=== PATIENT | female | born 1995 | race Hispanic/Latino ===

== ENCOUNTER 2017-09-24 17:00 | Inpatient (IN) | payer OTHER ==
--- OUTSIDE RECORDS SUMMARY | 2017-09-24 17:02 | XMS REPORT | Clinical Summary ---
:1995 Author Organization [facility] Address [address] [place] [address] Phone Care Team Providers Name Role Phone Unavailable Primary Care Provider Unavailable Allergies Active Allergy Reactions Severity Noted Date Comments Cefaclor Hives 04/07/2015 Current Medications Prescription Sig. Disp. Refills Start Date End Date Status insulin glargine Inject 16 Units Active (LANTUS) 100 subcutaneously every unit/mL injection morning Use as directed . insulin aspart Inject 16 Units Active (NOVOLOG) 100 subcutaneously 3 unit/mL injection (three) times daily before meals. acetaminophen-codei Take 1 tablet by 15 tablet 0 04/07/2015 Active ne (TYLENOL #3) mouth 3 (three) times 300-30 mg per daily as needed for tablet Pain. Active Problems Not on file Encounters Date Type Specialty Care Team Description 07/26/2017 Hospital Encounter Radiology Leigh Ulices Tachycardia Axel 07/24/2017 Outside Orders Central Scheduling Ulices Abraham Tachycardia ( Primary Axel Dx) after 09/23/2016 Social History Tobacco Use Types Packs/Day Years Used Date Never Smoker Alcohol Use Drinks/Week oz/Week Comments No Sex Assigned at Date Recorded Not on file Last Filed Vital Signs Not on file Plan of Treatment Not on file Results MR cardiac without IV contrast (07/26/2017 2:38 PM) Specimen Performing Laboratory [facility] Narrative FINAL REPORT Cardiac MRI, 26 July 2017 INDICATION: This is a 22-year old young lady with tachycardia presents for compressive cardiac assessment. TECHNIQUE: Jeannine ACHIEVA MRI scanner. Morphologic and dynamic cine imaging was performed in multiple projections before and after contrast administration.Thereafter, gadolinium was administered, which was then followed by viability/scar imaging.A phased array surface coil was used for enhanced resolution and [id number] ratio. Please refer to the contrast sheet scanned in the EPIC system for the amount and route of contrast given. Patient weighs approximately 65 pounds, with height of 49 inches. Scanning blood pressure was 113/69. FINDINGS: The chest wall and mediastinum are remarkable.Limited imaging of the lungs reveals no gross abnormality; MR is not optimised in the assessment of pulmonary parenchymal lung disease. The cardiac chambers demonstrate normal atrioventricular concordance and systemic and pulmonary venous return.The thoracic aorta is normal in course, caliber, and contour. The aortic arch is left-sided. The arch vessel branching pattern is normal. The pericardium and pulmonary arteries have normal appearance; no pericardial effusion is seen, and the central pulmonary artery is normal in calibre. In the MRI data set, the heart is located somewhat in the centre of the thorax (likely just a normal variant) though the apex is still pointing to the left (i.e. normal). The abdominal situs appears to be normal when this level is on the right side of the abdomen. The left ventricle is normal in size, shape, and function. There are no segmental wall motion abnormalities.Quantitative values are as follows: EDV=49 cc; ESV=17 cc; stroke volume=32 cc; and ejection fraction=65%.Calculated absolute cardiac output=3.8 liters/min.Absolute left ventricular mass=37 grams. There is no evidence of hypertrophic cardiomyopathy or left ventricular non-compaction.Normal systolic thickening is seen in the left ventricular outflow tract. Viability / scar imaging reveals full thickness, viable myocardium in the entire left ventricle.There is no prior myocardial damage. Ventricular thrombus is not identified. A focus examination was performed in the right ventricle, including the infundibulum. There is no MRI findings to suggest ARVD. Specifically, there is no fatty or fibrous replacement of the right ventricle.No regional wall motion abnormalities are identified. Overall right ventricular function is normal, normal systolic thickening is identified in the entire right ventricular myocardium, including the right ventricular outflow tractThere is no abnormal enhancement of the right ventricular myocardium after gadolinium administration. Quantitative right ventricular functional values are as follows: EDV =50 cc; ESV=13 cc; stroke volume=36 cc; and ejection fraction= 73%. Cine imaging and flow quantification reveal normal aortic, mitral, and tricuspid valve function. In the cine imaging, no evidence of mitral valve prolapse is appreciated in the traditional parasternal long axis orientation. No aortic stenosis is seen. CONCLUSIONS: 1. The left ventricle is normal in size and function.Ejection fraction is quantified to be 65%.Quantitative left ventricular functional values are as described above. Viability/scar imaging reveals full thickness, viable appearing myocardium in the entire left ventricle. 2.There is no MRI findings to suggest ARVD or other right ventricular cardiomyopathy. There is no focal or generalised aneurysmal dilation of the right ventricle. Normal contraction is seen in the right ventricular myocardium. No regional wall motion abnormalities are identified. Right ventricular function is normal. There is no abnormal enhancement of the right ventricular myocardium after gadolinium administration. Quantitative right ventricular functional values are as described above. 3.Note, scanning heart rate was at least 110 bpm during the entire examination. Signed: Jb Taylor MD Report Verified Date/Time:07/30/2017 07:53:01 Reading Location: [place] [id number] Cardiology MRI Procedure Note Interface, External Ris In - 07/30/2017 7:55 AM HOUSE [employer]PERINTENDENT FINAL REPORT Cardiac MRI, 26 July 2017 INDICATION: This is a 22-year old young lady with tachycardia presents for compressive cardiac assessment. TECHNIQUE: Jeannine ACHIEVA MRI scanner. Morphologic and dynamic cine imaging was performed in multiple projections before and after contrast administration. Thereafter, gadolinium was administered, which was then followed by viability/scar imaging. A phased array surface coil was used for enhanced resolution and [id number] ratio. Please refer to the contrast sheet scanned in the EPIC system for the amount and route of contrast given. Patient weighs approximately 65 pounds, with height of 49 inches. Scanning blood pressure was 113/69. FINDINGS: The chest wall and mediastinum are remarkable. Limited imaging of the lungs reveals no gross abnormality; MR is not optimised in the assessment of pulmonary parenchymal lung disease. The cardiac chambers demonstrate normal atrioventricular concordance and systemic and pulmonary venous return. The thoracic aorta is normal in course, caliber, and contour. The aortic arch is left-sided. The arch vessel branching pattern is normal. The pericardium and pulmonary arteries have normal appearance; no pericardial effusion is seen, and the central pulmonary artery is normal in calibre. In the MRI data set, the heart is located somewhat in the centre of the thorax (likely just a normal variant) though the apex is still pointing to the left (i.e. normal). The abdominal situs appears to be normal when this level is on the right side of the abdomen. The left ventricle is normal in size, shape, and function. There are no segmental wall motion abnormalities. Quantitative values are as follows: EDV=49 cc; ESV=17 cc; stroke volume=32 cc; and ejection fraction=65%. Calculated absolute cardiac output=3.8 liters/min. Absolute left ventricular mass=37 grams. There is no evidence of hypertrophic cardiomyopathy or left ventricular non-compaction. Normal systolic thickening is seen in the left ventricular outflow tract. Viability / scar imaging reveals full thickness, viable myocardium in the entire left ventricle. There is no prior myocardial damage. Ventricular thrombus is not identified. A focus examination was performed in the right ventricle, including the infundibulum. There is no MRI findings to suggest ARVD. Specifically, there is no fatty or fibrous replacement of the right ventricle. No regional wall motion abnormalities are identified. Overall right ventricular function is normal, normal systolic thickening is identified in the entire right ventricular myocardium, including the right ventricular outflow tract There is no abnormal enhancement of the right ventricular myocardium after gadolinium administration. Quantitative right ventricular functional values are as follows: EDV =50 cc; ESV=13 cc; stroke volume=36 cc; and ejection fraction= 73%. Cine imaging and flow quantification reveal normal aortic, mitral, and tricuspid valve function. In the cine imaging, no evidence of mitral valve prolapse is appreciated in the traditional parasternal long axis orientation. No aortic stenosis is seen. CONCLUSIONS: 1. The left ventricle is normal in size and function. Ejection fraction is quantified to be 65%. Quantitative left ventricular functional values are as described above. Viability/scar imaging reveals full thickness, viable appearing myocardium in the entire left ventricle. 2. There is no MRI findings to suggest ARVD or other right ventricular cardiomyopathy. There is no focal or generalised aneurysmal dilation of the right ventricle. Normal contraction is seen in the right ventricular myocardium. No regional wall motion abnormalities are identified. Right ventricular function is normal. There is no abnormal enhancement of the right ventricular myocardium after gadolinium administration. Quantitative right ventricular functional values are as described above. 3. Note, scanning heart rate was at least 110 bpm during the entire examination. Signed: Jb Taylor MD Report Verified Date/Time: 07/30/2017 07:53:01 Reading Location: [facility] P0 Cardiology MRI after 09/23/2016
--- OUTSIDE RECORDS SUMMARY | 2017-09-24 17:02 | XMS REPORT | Clinical Summary ---
:1995 Author Organization [facility] Address [address] [place] [address] Care Team Providers Name Role Phone Ashley Valdes Primary Care Provider Allergies Active Allergy Reactions Severity Noted Date Comments Cefaclor Hives, Rash High 03/19/2016 Current Medications Prescription Sig. Disp. Refills Start Date End Date Status blood sugar TID 100 strip 1 03/22/2016 Active diagnostic strips (FREESTYLE TEST) strip test strips famotidine (PEPCID) Take 20 mg by Active 20 MG tablet mouth 2 (two) times a day. GLUCAGON,HUMAN Inject 1 mg as Active RECOMBINANT directed as (GLUCAGON EMERGENCY needed KIT, HUMAN, INJ) (Hypoglycemia) . simvastatin (ZOCOR) Take 20 mg by 07/12/2017 Discontinued 20 MG tablet mouth nightly. sucralfate Take 1 g by 07/04/2017 07/12/2017 Discontinued (CARAFATE) 100 mouth 4 (four) mg/mL suspension times a day. mirtazapine Take 30 mg by 07/12/2017 Discontinued (REMERON) 15 MG mouth daily. tablet sertraline (ZOLOFT) Take 50 mg by 07/12/2017 Discontinued 50 MG tablet mouth daily. INSULIN ASPART Inject 20-40 07/12/2017 Discontinued (NOVOLOG FLEXPEN Units under SUBQ) the skin 3 (three) times a day before meals. INSULIN DEGLUDEC Inject 100 07/12/2017 Discontinued (TRESIBA FLEXTOUCH Units under U-100 SUBQ) the skin daily. insulin GLARGINE Inject 30 900 Units 0 07/12/2017 08/11/2017 (LANTUS SOLOSTAR) Units under 100 unit/mL the skin daily injection (pen) for 30 days. insulin lispro Inject 8 Units 4 pen 2 07/12/2017 08/11/2017 (HumaLOG KwikPen) under the skin 100 unit/mL 3 (three) injection pen times a day before meals for 30 days. Active Problems Problem Noted Date Diabetic ketoacidosis without coma associated with type 1 diabetes 07/04/2017 mellitus Type 1 diabetes mellitus with hyperglycemia 03/19/2016 Hyperglycemia without ketosis 03/19/2016 Type 1 diabetes mellitus with ketoacidosis without coma 03/19/2016 Encounters Date Type Specialty Care Team Description 07/04/2017 - Hospital Encounter General Internal Brunson, Hyperglycemia due to type 1 diabetes mellitus (Primary Dx); 07/12/2017 Medicine MD Jesse Pain of upper abdomen; El-Qaddoumi, Lactic acidosis; Jose Manuel Alexandra MD Hyponatremia; Khemka, Hyperglycemia without ketosis MD Jenny Diamond, MD Patrick after 09/23/2016 Immunizations Name Dates Previously Given Next Due FLUCELVAX QUAD PF (0.5mL syringe) 07/12/2017 Pneumococcal Conjugate 13-Valent 07/12/2017 Family History Medical History Relation Name Comments No Known Problems Father Seizures Mother Relation Name Status Comments Father Mother Social History Tobacco Use Types Packs/Day Years Used Date Never Smoker Smokeless Tobacco: Never Used Alcohol Use Drinks/Week oz/Week Comments No Sex Assigned at Date Recorded Not on file Last Filed Vital Signs Vital Sign Reading Time Taken Blood Pressure 104/69 07/12/2017 8:12 AM [facility] Pulse 107 07/12/2017 8:12 AM [facility] Temperature 35.9 C (96.6 F) 07/12/2017 8:12 AM [facility] [employer] Respiratory Rate 17 07/12/2017 8:12 AM [facility] [employer] Oxygen Saturation 99% 07/12/2017 8:12 AM [facility] RO[employer] Inhaled Oxygen Concentration - - Weight 29.8 kg (65 lb 12.8 oz) 07/09/2017 5:00 AM [facility] RO[employer] Height 121.9 cm (4') 07/04/2017 6:14 PM [facility] RO[employer] Body Mass Index 20.08 07/09/2017 5:00 AM [facility] [employer]VIS[facility] Plan of Treatment Health Maintenance Due Date Last Done Comments FOOT EXAM 2004 OPHTHALMOLOGY EXAM 2004 URINE MICROALBUMIN 2004 CHLAMYDIA SCREENING 2010 PAP SMEAR 2015 INFLUENZA VACCINE 01/01/2018 07/12/2017 Procedures Procedure Name Priority Date/Time Associated Comments Diagnosis ECHOCARDIOGRAM 2D Routine 07/12/2017 11:11 Results for this LIMITED AM [employer] procedure are in the results section. ECHOCARDIOGRAM 2D Routine 07/07/2017 5:30 Results for this COMPLETE W MMODE PM [employer]OR procedure are in SPECTRAL COLOR DOPPLER the results (84007) section. after 09/23/2016 Results POC glucose (07/12/2017 11:34 AM)Only the most recent of53 resultswithin the time period is included. Component Value Ref Range POC glucose 129 (H) 65 - 99 mg/dL Comment: RN Notified Meter ID: [id number] Rn Wound Care: Isis Dash Specimen Performing Laboratory [facility] DEPARTMENT OF PATHOLOGY AND GENOMIC MEDICINE [address] [place] [address] Echocardiogram 2d limited (07/12/2017 11:11 AM) Component Value Ref Range BSA Perla 0.00 m2 BSA 1.04 m2 BSA Haycock 0.00 m2 Pt Size 0.00 Pt Wt 0.00 MAX Pred HR 196.82 85 of MPHR 167.30 Calc MPHR 196.82 bpm Pred Exer Dur R1 11.89 Pred METS R1 11.69 Specimen Performing Laboratory [facility] [address] [place] [address] Narrative This is a limited 2D echocardiogram. Left ventricle is small in size with hyperdynamic systolic function. Left ventricular ejection fraction is >70%. Both atria are normal in size. Right ventricle is normal in size with hyperdynamic systolic function. Mitral and tricuspid valves appear normal in structure;aortic and pulmonic valves not well visualized. Unable to estimate right ventricular systolic pressure due to inadequate tricuspid regurgitation jet. No mass or thrombus identified in the cardiac chambers. Small pericardial effusion without any echocardiographic evidence of tamponade. Interatrial septum appears intact. Estimated GFR (07/12/2017 6:01 AM)Only the most recent of14 resultswithin the time period is included. Component Value Ref Range GFR Non Af Amer >90 mL/min/1.73 m2 GFR Af Amer >90 mL/min/1.73 m2 Comment: Chronic kidney disease: <60 mL/min/1.73m2 Kidney failure: <15 mL/min/1.73m2 The estimated GFR is calculated from the IDMS-traceable Modification of Diet in Renal Disease Equation. The accuracy of the calculation is poor when the creatinine is normal. Calculated values >90 mL/min/1.73m2 are not reported. This equation has not been validated in children (<18 years), women, the elderly (>70 years), or ethnic groups other than Caucasians and Americans. Specimen Performing Laboratory Plasma specimen [facility] DEPARTMENT OF PATHOLOGY AND GENOMIC MEDICINE [address] [place] [address] CBC with platelet and differential (07/12/2017 6:01 AM)Only the most recent of6 resultswithin the time period is included. Component Value Ref Range WBC 5.6 4.5 - 11.0 k/uL RBC 3.70 (L) 4.20 - 5.50 m/uL HGB 11.0 (L) 12.0 - 16.0 g/dL HCT 33.6 (L) 37.0 - 47.0 % MCV 90.8 82.0 - 100.0 fL MCH 29.7 27.0 - 34.0 pg MCHC 32.7 31.0 - 37.0 g/dL RDW - SD 42.3 37.0 - 55.0 fL MPV 12.6 (H) 6.9 - 11.0 fL Platelet count 150 150 - 400 K/uL Nucleated RBC 0.00 /100 WBC Neutrophils 51.4 39.0 - 69.0 % Lymphocytes 33.2 25.0 - 45.0 % Monocytes 10.9 (H) 0.0 - 10.0 % Eosinophils 2.0 0.0 - 5.0 % Basophils 0.7 0.0 - 1.0 % Immature granulocytes 1.8 (H) 0.0 - 1.0 % Specimen Performing Laboratory Blood [facility] DEPARTMENT OF PATHOLOGY AND [address] [address] Hepatic function panel (07/12/2017 6:01 AM)Only the most recent of2 resultswithin the time period is included. Component Value Ref Range Albumin 3.7 3.5 - 5.0 g/dL Total bilirubin 0.5 0.2 - 1.2 mg/dL Bilirubin direct <0.2 0.0 - 0.3 mg/dL Alkaline phosphatase 227 (H) 35 - 104 U/L Protein 6.1 (L) 6.3 - 8.3 g/dL ALT 439 (H) 5 - 50 U/L AST 543 (H) 10 - 35 U/L Specimen Performing Laboratory Plasma specimen [facility] [place] [address] Basic metabolic panel (07/12/2017 6:01 AM)Only the most recent of8 resultswithin the time period is included. Component Value Ref Range Sodium 139 135 - 148 mEq/L Potassium 4.0 3.5 - 5.0 mEq/L Chloride 96 (L) 98 - 112 mEq/L CO2 29 24 - 31 mEq/L Anion gap 14 7 - 15 mEq/L Comment: Starting from September , anion gap calculation no longer incorporates potassium. Please note the change. BUN 23 (H) 6 - 20 mg/dL Creatinine 0.4 (L) 0.5 - 0.9 mg/dL Glucose 304 (H) 65 - 99 mg/dL Calcium 9.0 8.3 - 10.2 mg/dL Specimen Performing Laboratory Plasma specimen [facility] [place] [address] ECG 12 lead (07/11/2017 8:31 AM)Only the most recent of3 resultswithin the time period is included. Component Value Ref Range Ventricular rate 117 Atrial rate 117 QRSD interval 54 QT interval 324 QTC interval 451 P axis 1 29 QRS axis 1 24 T wave axis 27 EKG impression Sinus tachycardia-Low voltage QRS-Borderline ECG-In automated comparison with ECG of 06-JUL-2017 21:08,-RSR' pattern in V1 is no longer present-QRS voltage has decreased-Nonspecific T wave abnormality n ow evident in Inferior leads- Specimen Performing Laboratory [facility] [address] [place] [address] Comprehensive metabolic panel (07/10/2017 6:10 AM)Only the most recent of6 resultswithin the time period is included. Component Value Ref Range Sodium 144 135 - 148 mEq/L Potassium 3.3 (L) 3.5 - 5.0 mEq/L Chloride 102 98 - 112 mEq/L CO2 27 24 - 31 mEq/L Anion gap 15 7 - 15 mEq/L Comment: Starting from September , anion gap calculation no longer incorporates potassium. Please note the change. BUN 14 6 - 20 mg/dL Creatinine 0.4 (L) 0.5 - 0.9 mg/dL Glucose 202 (H) 65 - 99 mg/dL Calcium 7.7 (L) 8.3 - 10.2 mg/dL Protein 5.8 (L) 6.3 - 8.3 g/dL Albumin 3.5 3.5 - 5.0 g/dL A/G ratio 1.5 0.7 - 3.8 Alkaline phosphatase 219 (H) 35 - 104 U/L AST 916 (H) 10 - 35 U/L ALT 351 (H) 5 - 50 U/L Total bilirubin 0.3 0.2 - 1.2 mg/dL Specimen Performing Laboratory Plasma specimen [facility] DEPARTMENT OF PATHOLOGY AND GENOMIC MEDICINE [address] [place] [address] Anti mitochondria screen (07/08/2017 2:00 PM) Component Value Ref Range Anti mitochondria screen Not Detected Not-Detected Specimen Performing Laboratory Blood [facility] DEPARTMENT OF PATHOLOGY AND [facility] [address] [place] [address] Ceruloplasmin level (07/08/2017 2:00 PM) Component Value Ref Range Ceruloplasmin 15 (L) 16 - 45 mg/dL Specimen Performing Laboratory Plasma specimen [facility] DEPARTMENT OF PATHOLOGY AND [facility] [address] [place] [address] Hepatitis acute panel (07/08/2017 2:00 PM) Component Value Ref Range Hepatitis A IgM Non-reactive Non-reactive Hepatitis B core IgM Non-reactive Non-reactive Hepatitis B surface Ag Non-reactive Non-reactive Hepatitis C Ab Non-reactive Non-reactive Specimen Performing Laboratory Serum [facility] OF PATHOLOGY AND [facility] [address] [place] [address] CRP high sensitivity (07/08/2017 2:00 PM) Component Value Ref Range CRP, high sensitivity <0.02 mg/L Comment: Please note this test is different from the C-Reactive Protein (CRP) assay. CRP is a nonspecific marker of inflammation and its levels rise in the presence of conditions such as infection and inflammatory disorders. Persistent low levels of CRP can be measured with a high-sensitivity assay (hsCRP) andare associated with increased risks for atherosclerotic diseases. High-Sensitivity CRP (hsCRP) results are used to assign risk for stroke, acute myocardial infarction and peripheral vascular disease as follows: Low risk: < 1.00 mg/L Average risk: 1.00 - 3.00 mg/L High risk: > 3.00 - 10.00 mg/L Indeterminate: > 10.00 mg/L * *May be indicative of another source of inflammation or infection Specimen Performing Laboratory Plasma specimen [facility] DEPARTMENT OF PATHOLOGY AND GENOMIC MEDICINE [address] [place] [address] LANCE (07/08/2017 2:00 PM) Component Value Ref Range LANCE screen <1:80 <1:80 Specimen Performing Laboratory Blood [facility] DEPARTMENT OF PATHOLOGY AND [facility] [address] [place] [address] Thyroid stimulating hormone (07/08/2017 2:00 PM)Only the most recent of2 resultswithin the time period is included. Component Value Ref Range TSH 0.74 0.27 - 4.20 uIU/mL Specimen Performing Laboratory Plasma specimen [facility] DEPARTMENT OF PATHOLOGY AND GENOMIC MEDICINE [address] [place] [address] Echocardiogram complete w contrast and 3D if needed (07/07/2017 5:30 PM) Component Value Ref Range AoV Mean PG 2.00 mmHg AoV Peak PG 3.00 mmHg AoV Vmax 0.85 m/s AoV VTI 0.12 m LVOT Vmax 0.77 m/s LVOT VTI 0.11 m PV Pk Grad 5.00 mmHg PV VMAX 1.07 m/s TR Vpeak 1.79 mm/s TR pk grad 13.00 mmHg AV LVOT peak gradient 2.00 mmHg AoV Vmn 0.64 LVOT Vmn 0.51 LVOT mean grad 1.00 mmHg MAX Pred HR 196.84 85 of MPHR 167.31 Calc MPHR 196.84 bpm Pred Exer Dur R1 11.89 Pred METS R1 11.69 Velocity Ratio (V1/V2) 0.91 m/s Specimen Performing Laboratory [facility] [address] [place] [address] Addenda Addendum by Chasity Correia MD on 07/11/2017 7:00 AM Left ventricle is small in size with hyperdynamic systolic function. Left ventricular ejection fraction is >70%. Unable to assess left ventricular diastolic function. Both atria are normal in size. Right ventricle is normal in size with hyperdynamic systolic function. Mitral, tricuspid and aortic valve appear normal in structure; pulmonic valve is not well visualized. Estimated right ventricular systolic pressure is normal at 27mm Hg., assuming right atrial pressure of 10 mm Hg. No mass or thrombus identified in the cardiac chambers. A small generalised pericardial effusion is present without echocardiographic evidence of tamponade. Inferior vena cava is collapsed, suggestive of low right atrial pressure. Narrative Left ventricle is small in size with hyperdynamic systolic function. Left ventricular ejection fraction is >70%. Unable to assess left ventricular diastolic function. Both atria are normal in size. Right ventricle is normal in size with hyperdynamic systolic function. Mitral, tricuspid and aortic valve appear normal in structure; pulmonic valve is not well visualized. Estimated right ventricular systolic pressure is normal at 27mm Hg., assuming right atrial pressure of 10 mm Hg. No mass or thrombus identified in the cardiac chambers. A small generalised pericardial effusion is present without echocardiographic evidence of tamponade. Urinalysis screen and microscopy, with reflex to culture (07/07/2017 3:30 PM) Only the most recent of2 resultswithin the time period is included. Component Value Ref Range Specimen site Clean catch Color, UA Yellow Appearance, UA Clear Specific gravity, UA 1.012 1.001 - 1.030 pH, UA 8.0 5.0 - 9.0 Protein, UA Negative Negative Glucose, UA Negative Negative Ketones, UA Negative Negative Bilirubin, UA Negative Negative Blood, UA Negative Negative Nitrite, UA Negative Negative Urobilinogen, UA <2.0 <2.0 E.U./dL Leukocyte esterase, UA Trace (A) Negative Epithelial cells, UA 2 /HPF Round epithelial cells, UA <1 0 - 5 /HPF WBC, UA 4 0 - 4 /HPF RBC, UA <1 0 - 2 /HPF Bacteria, UA None seen None seen Yeast, UA None seen Yeast with pseudohyphae, UA None seen Specimen Performing Laboratory Urine [facility] DEPARTMENT OF PATHOLOGY AND GENOMIC MEDICINE [address] [facility] [place] [address] Urine drugs of abuse screen (07/07/2017 3:30 PM) Component Value Ref Range Amphetamine screen, urine Negative Methamphetamine screen, urine Negative Barbiturate screen, urine Negative Benzodiazepine screen, urine Negative Cocaine screen, urine Negative Methadone screen, urine Negative Opiates screen, urine Negative Phencyclidine screen, urine Negative Cannabinoid screen, urine Negative Tricyclic screen, urine Negative Comment: Drug screen minimum concentration of detectability [id number] ng/mL Puswfxzfbxtaewxi7568 ng/mL Barbiturates 300 ng/mL Bnehwvqdiemsbxs037 ng/mL Xtslngo780 ng/mL Ymqogfesq918 ng/mL Fdeenax307 ng/mL Phencyclidine 25 ng/mL Tbdkwzutzpgf53 ng/mL Yvwtuioqtg3212 ng/mL Negative test results indicates presumptive evidence of lack of clinically significant drug concentration in this urine specimen. Positive test results are presumptive evidence of clinically significant drug concentration in this urine specimen. Testing performed for medical purposes only. Specimen Performing Laboratory Urine [facility] DEPARTMENT OF PATHOLOGY AND GENOMIC MEDICINE [address] [place] [address] Gram stain (07/07/2017 3:30 PM)Only the most recent of2 resultswithin the time period is included. Component Value Ref Range Gram stain result Rare WBC's No organisms seen Comment: Specimen Information Specimen Source: Urine Specimen Site: Clean catch Specimen Performing Laboratory Urine [facility] DEPARTMENT OF PATHOLOGY AND GENOMIC MEDICINE [address] [place] [address] Urine culture (07/07/2017 3:30 PM)Only the most recent of2 resultswithin the time period is included. Component Value Ref Range Urine culture isolate Mixed Gram positive danish 10-3 cfu/ml (A) Comment: Specimen Information Specimen Source: Urine Specimen Site: Clean catch Specimen Performing Laboratory Urine [facility] DEPARTMENT OF PATHOLOGY AND GENOMIC MEDICINE [address] [place] [address] Magnesium level (07/06/2017 2:13 AM)Only the most recent of4 resultswithin the time period is included. Component Value Ref Range Magnesium 1.9 1.6 - 2.6 mg/dL Specimen Performing Laboratory Plasma specimen [facility] DEPARTMENT OF PATHOLOGY AND [facility] [address] [place] [address] Ionized calcium (07/06/2017 2:13 AM)Only the most recent of2 resultswithin the time period is included. Component Value Ref Range pH 7.50 Ionized calcium 1.02 (L) 1.11 - 1.32 mmol/L Specimen Performing Laboratory Plasma specimen [facility] DEPARTMENT OF PATHOLOGY AND GENOMIC [address] [address] Lactic acid level (07/05/2017 5:40 AM) Component Value Ref Range Lactic acid 1.1 0.5 - 2.2 mmol/L Specimen Performing Laboratory Plasma specimen [facility] DEPARTMENT OF PATHOLOGY AND GENOMIC MEDICINE [address] [place] [address] Lactic acid level, SEPSIS - Now and repeat 2x every 3 hours (07/05/2017 1:44 AM )Only the most recent of3 resultswithin the time period is included. Component Value Ref Range Lactic acid 4.6 (HH) 0.5 - 2.2 mmol/L Comment: Lacid results called to and read back by Cuate Marquez/ARNOLDO (name/location) at 07/05/201702:31 (date/time) by [facility]. Specimen Performing Laboratory Plasma specimen [facility] OF PATHOLOGY AND GENOMIC MEDICINE [address] [place] [address] Osmolality, serum (07/05/2017 1:44 AM) Component Value Ref Range Osmolality 301 (H) 275 - 295 mOsm/kg Specimen Performing Laboratory Blood [facility] DEPARTMENT OF PATHOLOGY AND GENOMIC MEDICINE [address] [place] [address] ECG ED Preliminary Interpretation - NOT AN ORDER (07/05/2017 12:03 AM) Michaelle Leiva PA-C 07/04/2017 11:13 PM ECG ED Preliminary Interpretation - Not an Order Performed by: LORA LEIVA Authorized by: JESSE BRUNSON ECG reviewed by ED Physician in the absence of a fiberglass tube molder: yes Rate: ECG rate:132 ECG rate assessment: tachycardic Rhythm: Rhythm: sinus tachycardia QRS: QRS intervals:Normal ST segments: ST segments:Normal T waves: T waves: non-specific Hemoglobin A1c (07/04/2017 10:28 PM) Component Value Ref Range Hemoglobin A1C 15.2 (H) 4.0 - 6.0 % Comment: Less than 6% - Goal of therapy for Type II Diabetes Less than 7%-Goal of therapy for Type I Diabetes Less than 8%-Acceptable control for Type I or Type II Diabetes Greater than 8%-Unacceptable control; action indicated. (ADA94) Specimen Performing Laboratory Blood [facility] DEPARTMENT OF PATHOLOGY AND GENOMIC MEDICINE [address] [place] [address] CT Abdomen Pelvis W Contrast (07/04/2017 10:20 PM) Specimen Performing Laboratory [facility] [address] [place] [address] Narrative Examination: CT ABDOMEN PELVIS W CONTRAST Clinical history: abdominal pain Comparison: None Technique: Multiple computerized axial tomographic images were obtained of the abdomen and pelvis following administration of IV contrast.Sagittal and coronal computerized reformatted images were also obtained.Enteric contrast was administered. CT scans are performed using radiation dose reduction techniques.Technical factors are evaluated and adjusted to ensure appropriate moderation of exposure.Automated dose management technology is applied to adjust radiation exposure while achieving a diagnostic quality image. IMPRESSION: The visualized lung bases are clear. Abdomen: 1. The liver, spleen, adrenal glands, pancreas, and kidneys are unremarkable. 2. The pancreatic and biliary ducts are not dilated. The abdominal aorta is normal caliber. 3.The bowel is not dilated. The opacified bowel is unremarkable.A short segment of a normal appendix is identified. The remainder the appendix is not visualized. 4.There is no significant abdominal wall defect, hernia, or abscess. Pelvis: 1.Moderate distention of the bladder measures up to 11.7 x 9.8 cm axial by 15.7 cm in craniocaudal dimension and extends almost up to the umbilicus. If the patient cannot void, Thurston decompression may be helpful. 2.There is no acute osseous pathology. CONCLUSION: 1. DISTENTION OF THE BLADDER. 2. PLEASE SEE ABOVE. [facility]-[id number] Procedure Note Interface, Radiology Results Incoming - 07/04/2017 10:36 PM HOG ROOM [employer]PERVISOR Examination: CT ABDOMEN PELVIS W CONTRAST Clinical history: abdominal pain Comparison: None Technique: Multiple computerized axial tomographic images were obtained of the abdomen and pelvis following administration of IV contrast.Sagittal and coronal computerized reformatted images were also obtained. Enteric contrast was administered. CT scans are performed using radiation dose reduction techniques. Technical factors are evaluated and adjusted to ensure appropriate moderation of exposure. Automated dose management technology is applied to adjust radiation exposure while achieving a diagnostic quality image. IMPRESSION: The visualized lung bases are clear. Abdomen: 1. The liver, spleen, adrenal glands, pancreas, and kidneys are unremarkable. 2. The pancreatic and biliary ducts are not dilated. The abdominal aorta is normal caliber. 3. The bowel is not dilated. The opacified bowel is unremarkable. A short segment of a normal appendix is identified. The remainder the appendix is not visualized. 4. There is no significant abdominal wall defect, hernia, or abscess. Pelvis: 1. Moderate distention of the bladder measures up to 11.7 x 9.8 cm axial by 15.7 cm in craniocaudal dimension and extends almost up to the umbilicus. If the patient cannot void, Thurston decompression may be helpful. 2. There is no acute osseous pathology. CONCLUSION: 1. DISTENTION OF THE BLADDER. 2. PLEASE SEE ABOVE. [facility]-[id number] Arterial blood gas (07/04/2017 9:47 PM) Component Value Ref Range pH, arterial 7.47 (H) 7.35 - 7.45 pCO2, arterial 41 35 - 45 mmHg pO2, arterial 89 80 - 90 mmHg Bicarbonate, arterial 29.0 (H) 21.0 - 28.0 mmol/L Base excess, arterial 5 (H) -2 - 2 mEq/L O2 saturation, arterial 97 95 - 100 % Specimen Performing Laboratory Blood [facility] DEPARTMENT OF PATHOLOGY AND GENOMIC MEDICINE [id number] [place] [address] XR Chest 1 Vw Portable (07/04/2017 8:22 PM) Specimen Performing Laboratory [facility] [place] [address] Narrative Examination: XR CHEST 1 VW PORTABLE Clinical history: r o pulm edemapneumonia Comparison: February 22, 2016 Impression: 1. The heart and pulmonary vasculature are within normal limits. 2. No infiltrate or effusion is demonstrated. 3. There is no acute osseous pathology. CONCLUSION: NO RADIOGRAPHIC EVIDENCE OF ACUTE CARDIOPULMONARY ABNORMALITY. [id number] Procedure Note Interface, Radiology Results Incoming - 07/04/2017 8:27 PM HOG ROOM [employer]PERVISOR Examination: XR CHEST 1 VW PORTABLE Clinical history: r o pulm edema pneumonia Comparison: February 22, 2016 Impression: 1. The heart and pulmonary vasculature are within normal limits. 2. No infiltrate or effusion is demonstrated. 3. There is no acute osseous pathology. CONCLUSION: NO RADIOGRAPHIC EVIDENCE OF ACUTE CARDIOPULMONARY ABNORMALITY. [facility]-[id number] US Gallbladder (07/04/2017 8:13 PM) Specimen Performing Laboratory [facility] [address] [place] [address] Narrative EXAMINATION:US GALLBLADDER CLINICAL HISTORY:epigastric pain COMPARISON:None. FINDINGS: Gallbladder: The gallbladder is normal in size and there are no calculi. The gallbladder wall is not thickened and measures 2.0 mm in thickness. There is no pericholecystic fluid. CBD:0.19 cm , within normal limits. Portal vein: The portal vein demonstrates normal hepatopedal flow. The portal vein measures 1.1 cm in diameter. Portal blood flow velocity is 10 cm/s. IMPRESSION: Normal gallbladder ultrasound examination. [facility]-[id number] Procedure Note [facility], Radiology Results Incoming - 07/04/2017 8:20 PM [facility] SUPERVISOR EXAMINATION: US GALLBLADDER CLINICAL HISTORY: epigastric pain COMPARISON: None. FINDINGS: Gallbladder: The gallbladder is normal in size and there are no calculi. The gallbladder wall is not thickened and measures 2.0 mm in thickness. There is no pericholecystic fluid. CBD: 0.19 cm , within normal limits. Portal vein: The portal vein demonstrates normal hepatopedal flow. The portal vein measures 1.1 cm in diameter. Portal blood flow velocity is 10 cm/s. IMPRESSION: Normal gallbladder ultrasound examination. [facility]-[id number] Beta hydroxybutyrate (07/04/2017 7:25 PM) Component Value Ref Range Beta hydroxybutyrate 4.63 (H) 0.02 - 0.27 mmol/L Specimen Performing Laboratory Blood [facility] DEPARTMENT OF PATHOLOGY AND GENOMIC MEDICINE [address] [place] [id number] hCG qualitative, serum screen (07/04/2017 7:25 PM) Component Value Ref Range hCG qualitative, serum NegativeComment: Sensitivity of HCG test: 25 mIU/mL Specimen Performing Laboratory Blood [facility] DEPARTMENT OF PATHOLOGY AND GENOMIC MEDICINE [address] [place] [phone] Lipase level (07/04/2017 7:25 PM) Component Value Ref Range Lipase 18 13 - 60 U/L Specimen Performing Laboratory Plasma specimen [facility] DEPARTMENT OF PATHOLOGY AND GENOMIC MEDICINE [address] [place] [id number] after 09/23/2016 Insurance Payer Benefit Plan / Group Subscriber ID Type Phone Address [employer] [place] xxxxxxxxx HMO [phone] [place], [place] [phone]
--- OUTSIDE RECORDS SUMMARY | 2017-09-24 17:04 | XMS REPORT ---
:1995 [facility] [address] [place] [address] Care Team Providers Name Role Phone DR KELLIE RODRIGUEZ Unavailable Unavailable DR KAMLESH HARO Unavailable Unavailable Problems This patient has no known problems. Allergies, Adverse Reactions, Alerts This patient has no known allergies or adverse reactions. Medications This patient has no known medications. Encounters Start End Encounter Admission Attending Care Care Encounter Date/Time Date/Time Type Type Clinicians Facility Department ID 2017-09-17 2017-09-19 Inpatient C KELLIE RODRIGUEZ [facility] [id number] 00:11:00 17:20:00 Results Test Description Test Time Test Comments Text Results Atomic Results Result Comments POTASSIUM BLOOD 2017-09-19 16:17:00 Test Item Value Reference Range Comments POTASSIUM (test code=01B) 3.8 mmol/L 3.6-5.1 GLUCOMETER GLUCOSE- LAB USE [id number] 15:31:00 Test Item Value Reference Range Comments GLUCOMETER (test code=GMG) 112 mg/dL 70-100 Meter ID: [id number]: 59[address] RICHARDS OSMOLARITY [id number] 14:33:00 Test Item Value Reference Range Comments OSMOLALITY (SERUM) (test 296 mOsm/kg 278-305 TEST PERFORMED AT:QUEST afis=[id number]) DI[facility]NOSTICS[id number] [place], [place] [address]KKMKESMORRIS THORNE MD GLUCOMETER GLUCOSE- LAB USE [id number] 11:13:00 Test Item Value Reference Range Comments GLUCOMETER (test code=GMG) 206 mg/dL 70-100 Meter ID: [id number]: 5930 JUAN RICHARDS CBC WITH MANUAL [id number] 09:49:00 Test Item Value Reference Range Comments WBC (test code=WBC) 5.0 10\S\3/uL 4.5-11.0 RBC (test code=RBC) 4.60 10\S\6/uL 4.30-5.70 HGB (test code=HBG) 13.0 g/dL 12.0-15.5 HCT (test code=HCT) 37.8 % 35.0-44.0 MCV (test code=MCV) 82.2 fL 81.0-99.0 MCH (test code=MCH) 28.3 pg 27.0-31.0 MCHC (test code=MCHC) 34.4 g/dL 32.0-36.0 RDW (test code=RDW) 13.2 % 11.5-14.5 PLT (test code=PLT) 156 10\S\3/uL 130-400 MPV (test code=MPV) 10.9 fL 9.4-12.4 NEUTROP # (test code=NE#) 3.3 10\S\3/uL 1.6-8.0 LYMPH # (test code=LY#) 1.3 10\S\3/uL 1.1-3.5 MONOCYTE # (test code=MO#) 0.5 10\S\3/uL 0.0-1.1 EOSINOPH # (test code=EO#) 0.0 10\S\3/uL 0.0-0.7 BASOPHIL # (test code=BA#) 0.0 10\S\3/uL 0.0-0.3 IG # (test code=IG#) 0.03 10\S\3/uL 0.00-0.06 NRBC # (test code=NRBC#) 0.00 10\S\3/uL 0.00-0.01 NEUTROPH % (test code=NE%) 64.5 % 35.0-73.0 LYMPH % (test code=LY%) 24.8 % 20.0-55.0 MONO % (test code=MO%) 9.5 % 2.5-10.0 EOSINOPH % (test code=EO%) 0.2 % 0.0-5.0 BASOPHIL % (test code=BA%) 0.4 % 0.0-2.0 IG % (test code=IG%) 0.6 % 0.0-0.8 NRBC% (test code=NRBC%) 0.0 % 0.0-0.2 MAN DIFF (test code=HMDIFF) MANUAL DIFFERENTIAL SEG (test code=SEG) 65 % 42-75 BAND (test code=BAND) 0 % 0-8 LYMPH (test code=LYMPH) 26 % 20-51 MONO (test code=MONO) 9 % 3-11 EOS (test code=EOS) 0 % 0-10 BASO (test code=BASO) 0 % 0-2 RBC MORPH (test code=RBCMORN) NORMAL NORMAL PLT EST (test code=PLTEST) ADEQUATE ADEQUATE PLT MORPH (test code=PLTMOR) NORMAL (1.5-3 um) NORMAL BASIC METABOLIC [id number] 09:48:00 Test Item Value Reference Range Comments GLUCOSE (test code=06D) 424 mg/dL 75-100 SODIUM (test code=01A) 135 mmol/L 136-145 POTASSIUM (test code=01B) 3.2 mmol/L 3.6-5.1 CHLORIDE (test code=04A) 95 mmol/L 98-107 CO2 (test code=02A) 31 mmol/L 22-32 ANION GAP (test code=ANG) 12.2 mmol/L BUN (test code=05D) 6 mg/dL 7-18 CREATININE (test code=03E) 0.8 mg/dL 0.4-1.1 BUN/CREA (test code=BCR) 8 12-20 CALCIUM (test code=09D) 7.2 mg/dL 8.3-9.5 GLUCOMETER GLUCOSE- LAB USE [id number] 06:09:00 Test Item Value Reference Range Comments GLUCOMETER (test code=GMG) 269 mg/dL 70-100 Meter ID: [id number]: 4[address] NANCY HI GLUCOMETER GLUCOSE- LAB USE [id number] 20:42:00 Test Item Value Reference Range Comments GLUCOMETER (test code=GMG) 224 mg/dL 70-100 Meter ID: [id number]: [address] NANC[address] GLUCOMETER GLUCOSE- LAB USE [id number] 16:16:00 Test Item Value Reference Range Comments GLUCOMETER (test code=GMG) 152 mg/dL 70-100 CLEANED METERMeter ID: [id number]: 5307 LANCE SADLER GLUCOMETER GLUCOSE- LAB USE [id number] 11:47:00 Test Item Value Reference Range Comments GLUCOMETER (test code=GMG) 115 mg/dL 70-100 CLEANED METERMeter ID: [id number]: 5[address] LANCE SADLER XR CHEST 1 [id number] 07:52:23EXAM: Portable chest x-rayLocation: [id number]: J18.9: PNEUMONIA, UNSPECIFIED ORGANISMCOMPARISON:Chest x-ray on 09/17/17DISCUSSION:The right upper examination intravenous catheter tip overlies the right atrium.No consolidation or pleural effusion is seen. The cardiomediastinal silhouetteis withinnormal limits. No acute bony abnormalities are identified.IMPRESSION: No evidence of acute abnormality or significant interval change.U/S KIDNEY (RENAL)2017-09-18 07:03:55RENAL ULTRASOUNDLocation Code: [id number] HISTORY: N17.9: ACUTE KIDNEY FAILURE, UNSPECIFIEDCOMPARISON: None.COMMENT: Wahl scale and selective color Doppler sonographic imaging of thekidneys was performed.The kidneys are of normal echogenicity with no focal mass, calcification, orhydronephrosis.The right kidney measures 10.1 x 5.2 x 4.5 cm. The left kidney measures 9.8 x4.6 x 5.1 cm. Cortical thickness is normal on each side.The bladder is unremarkable with no significant post void residual. Bilateralureteral jets are identified.IMPRESSION: Normal renal ultrasound.BRAIN NATRIURETIC [id number] 06:23:00 Test Item Value Reference Range Comments proBNP (test code=PBNP) 350 pg/mL 0-125 BASIC METABOLIC [id number] 06:20:00 Test Item Value Reference Range Comments GLUCOSE (test code=06D) 172 mg/dL 75-100 SODIUM (test code=01A) 142 mmol/L 136-145 POTASSIUM (test code=01B) 2.3 mmol/L 3.6-5.1 CHLORIDE (test code=04A) 101 mmol/L 98-107 CO2 (test code=02A) 31 mmol/L 22-32 ANION GAP (test code=ANG) 12.3 mmol/L BUN (test code=05D) 4 mg/dL 7-18 CREATININE (test code=03E) 0.8 mg/dL 0.4-1.1 BUN/CREA (test code=BCR) 5 12-20 CALCIUM (test code=09D) 7.1 mg/dL 8.3-9.5 CBC (INCLUDES AUTOMATED DIFFERENTIAL)2017-09-18 06:18:00 Test Item Value Reference Range Comments WBC (test code=WBC) 9.2 10\S\3/uL 4.5-11.0 RBC (test code=RBC) 4.12 10\S\6/uL 4.30-5.70 HGB (test code=HBG) 11.5 g/dL 12.0-15.5 HCT (test code=HCT) 33.1 % 35.0-44.0 MCV (test code=MCV) 80.3 fL 81.0-99.0 MCH (test code=MCH) 27.9 pg 27.0-31.0 MCHC (test code=MCHC) 34.7 g/dL 32.0-36.0 RDW (test code=RDW) 13.5 % 11.5-14.5 PLT (test code=PLT) 179 10\S\3/uL 130-400 MPV (test code=MPV) 11.1 fL 9.4-12.4 NEUTROP # (test code=NE#) 5.8 10\S\3/uL 1.6-8.0 LYMPH # (test code=LY#) 2.7 10\S\3/uL 1.1-3.5 MONOCYTE # (test code=MO#) 0.7 10\S\3/uL 0.0-1.1 EOSINOPH # (test code=EO#) 0.0 10\S\3/uL 0.0-0.7 BASOPHIL # (test code=BA#) 0.0 10\S\3/uL 0.0-0.3 IG # (test code=IG#) 0.06 10\S\3/uL 0.00-0.06 NRBC # (test code=NRBC#) 0.00 10\S\3/uL 0.00-0.01 NEUTROPH % (test code=NE%) 62.5 % 35.0-73.0 LYMPH % (test code=LY%) 29.3 % 20.0-55.0 MONO % (test code=MO%) 7.1 % 2.5-10.0 EOSINOPH % (test code=EO%) 0.3 % 0.0-5.0 BASOPHIL % (test code=BA%) 0.2 % 0.0-2.0 IG % (test code=IG%) 0.6 % 0.0-0.8 NRBC% (test code=NRBC%) 0.0 % 0.0-0.2 MANDIFF (test code=MDIFF) NO NO RBC MORPH (test code=RBCMOR) NORMAL T3 [id number] 06:07:00 Test Item Value Reference Range Comments T3 FREE (test 1.7 pg/mL 2.3-4.2 TEST PERFORMED AT:QUEST ujiq=[id number]) DIAGNOSTICS [id number] [place] [address]YHTMNKRYSTINA CHASE M.D. GLUCOMETER GLUCOSE- LAB USE [id number] 23:36:00 Test Item Value Reference Range Comments GLUCOMETER (test code=GMG) 134 mg/dL 70-100 DAILY MAINTENANCECLEANED METERMeter ID: [id number]: 5366 DEREK MCKNIHGT GLUCOMETER GLUCOSE- LAB USE [id number] 22:03:00 Test Item Value Reference Range Comments GLUCOMETER (test code=GMG) 149 mg/dL 70-100 Meter ID: [id number]: 4316 MARGARET LY URINALYSIS WITH [id number] 17:52:00 Test Item Value Reference Range Comments COLOR (test code=COLU) YELLOW YELLOW CLARITY (test code=CLA) CLEAR CLEAR GLUCOSE UR (test code=UA GLUCOSE) 2+ NEGATIVE BILI UR (test code=BILE) NEGATIVE NEGATIVE KETONES UR (test code=GRIS) NEGATIVE NEGATIVE SP GRAVITY (test code=SPGR) 1.013 1.005-1.030 PH UR (test code=PH) 5.5 4.5-8.0 PROTEIN UR (test code=PU) NEGATIVE NEGATIVE UROBIL UR (test code=UROQ) 0.2 EU/dL 0.2-1.0 NITRITE UR (test code=NITRITE) NEGATIVE NEGATIVE BLOOD UR (test code=UA BLOOD) NEGATIVE NEGATIVE LEUK ES UR (test code=LEUK) TRACE NEGATIVE WBC UR (test code=UWBC) 4 /HPF 0-5 RBC UR (test code=URBC) 0 /HPF 0-2 EPITH UR (test code=UEPC) FEW /LPF FEW BACTERIA UR (test code=UBACT) NONE /HPF NONE CAST UR (test code=CAST) /LPF NONE CRYSTAL UR (test code=CRYU) / LPF NONE MUCUS UR (test code=MUC) / HPF NONE AMORPH UR (test code=CAROL) / HPF NONE TRICH UR (test code=UTRICH) /HPF NONE YEAST UR (test code=UY) /HPF NONE SPERM UR (test code=USPERM) /HPF NONE GLUCOMETER GLUCOSE- LAB USE [id number] 16:52:00 Test Item Value Reference Range Comments GLUCOMETER (test code=GMG) 266 mg/dL 70-100 CLEANED METERMeter ID: [id number]: 9195 JAMES MCDOWELLFrancesca PHOSPHORUS (P04)2017-09-17 14:57:00 Test Item Value Reference Range Comments PHOSPHORUS (test code=43D) 7.9 mg/dL 2.7-4.6 BASIC METABOLIC [id number] 14:15:00 Test Item Value Reference Range Comments GLUCOSE (test code=06D) 177 mg/dL 75-100 SODIUM (test code=01A) 137 mmol/L 136-145 POTASSIUM (test code=01B) 4.2 mmol/L 3.6-5.1 CHLORIDE (test code=04A) 98 mmol/L 98-107 CO2 (test code=02A) 30 mmol/L 22-32 ANION GAP (test code=ANG) 13.2 mmol/L BUN (test code=05D) 4 mg/dL 7-18 CREATININE (test code=03E) 0.9 mg/dL 0.4-1.1 BUN/CREA (test code=BCR) 5 12-20 CALCIUM (test code=09D) 6.6 mg/dL 8.3-9.5 GLUCOMETER GLUCOSE- LAB USE [id number] 11:15:00 Test Item Value Reference Range Comments GLUCOMETER (test code=GMG) 182 mg/dL 70-100 CLEANED METERMeter ID: [id number]: [address] [facility] LIPID [id number] 10:22:00 Test Item Value Reference Range Comments CHOLESTROL (test code=44A) 129 mg/dL 140-200 TRIGLYCERI (test code=42B) 89 mg/dL <=149 HDL (test code=83D) 53.0 mg/dL 40.0-60.0 LDL (test code=34B) 68 mg/dL <=99 CHL/HDL (test code=CHR) 2.4 0.0-3.4 BASIC METABOLIC [id number] 10:11:00 Test Item Value Reference Range Comments GLUCOSE (test code=06D) 264 mg/dL 75-100 SODIUM (test code=01A) 135 mmol/L 136-145 POTASSIUM (test code=01B) 3.0 mmol/L 3.6-5.1 CHLORIDE (test code=04A) 96 mmol/L 98-107 CO2 (test code=02A) 28 mmol/L 22-32 ANION GAP (test code=ANG) 14.0 mmol/L BUN (test code=05D) 5 mg/dL 7-18 CREATININE (test code=03E) 1.0 mg/dL 0.4-1.1 BUN/CREA (test code=BCR) 5 12-20 CALCIUM (test code=09D) 7.2 mg/dL 8.3-9.5 GLUCOMETER GLUCOSE- LAB USE [id number] 10:10:00 Test Item Value Reference Range Comments GLUCOMETER (test code=GMG) 191 mg/dL 70-100 CLEANED METERMeter ID: [id number]: [address] [facility] LIVER [id number] 10:05:00 Test Item Value Reference Range Comments BILI TOTAL (test code=11A) 0.4 mg/dL 0.2-1.0 BILI DIRCT (test code=12A) 0.1 mg/dL 0.0-0.2 BILI INDIR (test code=BILII) 0.3 mg/dL <=0.8 PROTEIN (test code=07D) 5.7 g/dL 6.4-8.2 ALBUMIN (test code=08D) 3.1 g/dL 3.5-4.8 GLOBULIN (test code=GLB) 2.6 g/dL 1.5-3.8 ALB/GLOB (test code=AGRR) 1.2 1.0-2.6 ALK PHOS (test code=35A) 119 IU/L 42-121 AST (test code=30A) 18 IU/L <=42 ALT (test code=31A) 41 IU/L <=78 [id number] 09:58:00 Test Item Value Reference Range Comments CPK (test code=32A) 50 IU/L 26-192 AMYLASE AND [id number] 09:52:00 Test Item Value Reference Range Comments AMYLASE (test code=10A) 49 U/L 28-100 LIPASE (test code=60A) 37 IU/L 73-393 Venous Blood [id number] 09:24:00 Test Item Value Reference Range Comments VpH (test code=VPHRT) 7.433 7.300-7.400 VpCO2 (test code=DPUL9XT) 43.1 mmHg 40.0-50.0 VpO2 (test code=VPO2RT) 40.6 mmHg 30.0-40.0 HCO3? (test code=HCO3) 28.3 mmol/L 22.0-26.0 KAMAR (test code=KAMAR) 4.1 mmol/L -3.0-3.0 tHb (test code=THBRT) 12.5 g/dL 12.0-15.5 vsO2 (test code=VSO2RT) 76.7 % 55.0-75.0 FO2Hb (test code=CS3VODNO) 74.8 % FCOHb (test code=FCOHBRTV) 1.4 % FMetHb (test code=FMETHBRTV) 1.0 % ABGTEMP (test code=ABGTEMP) * Temp Corrected Values* ABGTEMP (test code=ABGTEMP.) 37.0 ?C pH (T) (test code=PHTEMPV) 7.433 7.300-7.400 pCO2 (T) (test code=KEM8RHLRG) 43.1 mmHg 40.0-50.0 pO2 (T) (test code=FP3RPPGO) 40.6 mmHg 30.0-40.0 Device (test code=DEVICE) ROOM AIR FI02 (test code=FI02) 21.0 % Liter_flow (test code=LF) VENPAR (test code=VENPAR) * Ventilator Parameters * SIMV (test code=SIMV) A/C (test code=A/C) CPAP (test code=CPAP) PEEP (test code=PEEP) PS (test code=PS) PIP (test code=PIP) I_Time (test code=ITIME) Vt (test code=VT) BIPAP INSP (test code=BIPAPINP) BIPAP EXP (test code=BIPAPEXP) SAMPLE SITE (test code=SSITE) Vein COMMENT (test code=CO) GLUCOMETER GLUCOSE- LAB USE [id number] 09:19:00 Test Item Value Reference Range Comments GLUCOMETER (test code=GMG) 262 mg/dL 70-100 CLEANED METERMeter ID: [id number]: [address] M[address]OWELL U/S [id number] 09:13:35ULTRASOUND-GUIDED CENTRAL LINE PLACEMENTCLINICAL HISTORY: DKA. [id number]: Central venous cannula insertion. PROCEDURE: Written informed consent was obtained. The right neck was evaluatedwith real- time ultrasound, and the internal jugular vein was deemed to bepatent and compressible. The skin overlying the area was sterilely prepped anddraped and anesthetized with 1% lidocaine. All elements of maximal sterilebarrier technique were employed. Under real-time ultrasound guidance, access into the right internal jugularvein was gained using micropuncture access. An image was saved to the permanentrecord. A J-wire was advanced centrally. The microsheath was removed, and thesoft tissues were dilated.Finally, a triple-lumen catheter was placed over thewire. The wire was removed. All ports aspirated and flushed well. The catheterwas then secured to skin with nonabsorbable suture. The patient tolerated theprocedure well.FINDINGS:Position: A final placement radiograph demonstrates the tip of the catheter inthe high right atrium.Complications: None IMPRESSION: Successful placement of a triple- lumen central line via the right internalvein. This line is ready for use.Location: R16XR CENTRAL LINE [id number] 09:13:35ULTRASOUND-GUIDED CENTRAL LINE PLACEMENTCLINICAL HISTORY: DKA. [id number]: Central venous cannula insertion. PROCEDURE: Written informed consent was obtained. The right neck was evaluatedwith real-time ultrasound, and the internal jugular vein was deemed to bepatent and compressible. The skin overlying the area was sterilely prepped anddraped and anesthetized with 1% lidocaine. All elements of maximal sterilebarrier technique were employed. Under real-time ultrasound guidance, access into the right internal jugularvein was gained using micropuncture access. [facility]. A J-wire was advanced centrally. The microsheath was removed, and thesoft tissues were dilated.Finally , a triple-lumen catheter was placed over thewire. The wire was removed. All ports aspirated and flushed well. The catheterwas then secured to skin with nonabsorbable suture. The patient tolerated theprocedure well.FINDINGS:Position : A final placement radiograph demonstrates the tip of the catheter inthe high right atrium.Complications: None IMPRESSION: Successful placement of a triple-lumen central line via the right internalvein. This line is ready for use.Location: [id number] 08:31:00 Test Item Value Reference Range Comments MAGNESIUM (test code=48A) 3.1 mg/dL 1.8-2.4 PHOSPHORUS (P04)2017-09-17 08:27:00 Test Item Value Reference Range Comments PHOSPHORUS (test code=43D) 0.2 mg/dL 2.7-4.6 BASIC METABOLIC [id number] 07:58:00 Test Item Value Reference Range Comments GLUCOSE (test code=06D) 345 mg/dL 75-100 SODIUM (test code=01A) 134 mmol/L 136-145 POTASSIUM (test code=01B) 2.2 mmol/L 3.6-5.1 CHLORIDE (test code=04A) 96 mmol/L 98-107 CO2 (test code=02A) 22 mmol/L 22-32 ANION GAP (test code=ANG) 18.2 mmol/L BUN (test code=05D) 7 mg/dL 7-18 CREATININE (test code=03E) 1.0 mg/dL 0.4-1.1 BUN/CREA (test code=BCR) 7 12-20 CALCIUM (test code=09D) 7.6 mg/dL 8.3-9.5 GLUCOMETER GLUCOSE- LAB USE [id number] 07:43:00 Test Item Value Reference Range Comments GLUCOMETER (test code=GMG) 286 mg/dL 70-100 CLEANED METERMeter ID: [id number]: 9[address] J[address] ESTRELLA CBC (INCLUDES AUTOMATED DIFFERENTIAL)2017-09-17 07:04:00 Test Item Value Reference Range Comments WBC (test code=WBC) 13.5 10\S\3/uL 4.5-11.0 RBC (test code=RBC) 4.33 10\S\6/uL 4.30-5.70 HGB (test code=HBG) 12.5 g/dL 12.0-15.5 HCT (test code=HCT) 34.4 % 35.0-44.0 MCV (test code=MCV) 79.4 fL 81.0-99.0 MCH (test code=MCH) 28.9 pg 27.0-31.0 MCHC (test code=MCHC) 36.3 g/dL 32.0-36.0 RDW (test code=RDW) 13.0 % 11.5-14.5 PLT (test code=PLT) 255 10\S\3/uL 130-400 MPV (test code=MPV) 11.2 fL 9.4-12.4 NEUTROP # (test code=NE#) 9.9 10\S\3/uL 1.6-8.0 LYMPH # (test code=LY#) 2.8 10\S\3/uL 1.1-3.5 MONOCYTE # (test code=MO#) 0.7 10\S\3/uL 0.0-1.1 EOSINOPH # (test code=EO#) 0.0 10\S\3/uL 0.0-0.7 BASOPHIL # (test code=BA#) 0.1 10\S\3/uL 0.0-0.3 IG # (test code=IG#) 0.14 10\S\3/uL 0.00-0.06 NRBC # (test code=NRBC#) 0.00 10\S\3/uL 0.00-0.01 NEUTROPH % (test code=NE%) 73.0 % 35.0-73.0 LYMPH % (test code=LY%) 20.6 % 20.0-55.0 MONO % (test code=MO%) 4.8 % 2.5-10.0 EOSINOPH % (test code=EO%) 0.2 % 0.0-5.0 BASOPHIL % (test code=BA%) 0.4 % 0.0-2.0 IG % (test code=IG%) 1.0 % 0.0-0.8 NRBC% (test code=NRBC%) 0.0 % 0.0-0.2 MANDIFF (test code=MDIFF) NO NO RBC MORPH (test code=RBCMOR) NORMAL GLUCOMETER GLUCOSE- LAB USE [id number] 06:27:00 Test Item Value Reference Range Comments GLUCOMETER (test code=GMG) 319 mg/dL 70-100 Meter ID: [id number]: 5015 SEMCO EngineeringUMA AWOLOLA GLUCOMETER GLUCOSE- LAB USE [id number] 05:18:00 Test Item Value Reference Range Comments GLUCOMETER (test code=GMG) 325 mg/dL 70-100 Meter ID: [id number]: 5015 KASUMA AWOLOLA GLUCOMETER GLUCOSE- LAB USE [id number] 04:18:00 Test Item Value Reference Range Comments GLUCOMETER (test code=GMG) 331 mg/dL 70-100 Meter ID: [id number]: 5015 KASUMA AWOLOLA Venous Blood [id number] 02:53:00 Test Item Value Reference Range Comments VpH (test code=VPHRT) 7.396 7.300-7.400 VpCO2 (test code=ZKJD8QS) 41.0 mmHg 40.0-50.0 VpO2 (test code=VPO2RT) 39.6 mmHg 30.0-40.0 HCO3? (test code=HCO3) 24.6 mmol/L 22.0-26.0 KAMAR (test code=KAMAR) 0.3 mmol/L -3.0-3.0 tHb (test code=THBRT) 12.3 g/dL 12.0-15.5 vsO2 (test code=VSO2RT) 73.0 % 55.0-75.0 FO2Hb (test code=PI6BBSHN) 71.4 % FCOHb (test code=FCOHBRTV) 1.1 % FMetHb (test code=FMETHBRTV) 1.0 % ABGTEMP (test code=ABGTEMP) * Temp Corrected Values* ABGTEMP (test code=ABGTEMP.) 37.0 ?C pH (T) (test code=PHTEMPV) 7.396 7.300-7.400 pCO2 (T) (test code=YZQ3JSFPI) 41.0 mmHg 40.0-50.0 pO2 (T) (test code=IK1NEOCC) 39.6 mmHg 30.0-40.0 Device (test code=DEVICE) CANNULA FI02 (test code=FI02) 28.0 % Liter_flow (test code=LF) VENPAR (test code=VENPAR) * Ventilator Parameters * SIMV (test code=SIMV) A/C (test code=A/C) CPAP (test code=CPAP) PEEP (test code=PEEP) PS (test code=PS) PIP (test code=PIP) I_Time (test code=ITIME) Vt (test code=VT) BIPAP INSP (test code=BIPAPINP) BIPAP EXP (test code=BIPAPEXP) SAMPLE SITE (test code=SSITE) [place] COMMENT (test code=CO) GLUCOMETER GLUCOSE- LAB USE [id number] 02:38:00 Test Item Value Reference Range Comments GLUCOMETER (test code=GMG) 217 mg/dL 70-100 Meter ID: [id number]: 5015 [facility] XR CHEST 1 VIEW [id number] 02:27:06CHEST RADIOGRAPHLOCATION: R16.INDICATION: [id number]: Central venous cannula insertion.COMPARISON: None.TECHNIQUE: Frontal radiograph of the chest.FINDINGS:The right jugular central venous catheter tip projects over the right atrium.No focal airspace consolidation or pneumothorax is visualized. Thecardiomediastinal silhouette is normal.IMPRESSION:The right jugular catheter terminates in the right atrium.GLUCOMETER GLUCOSE- LAB USE [id number] 01:12:00 Test Item Value Reference Range Comments GLUCOMETER (test code=GMG) 216 mg/dL 70-100 Meter ID: [id number]: [id number] SHRUTHI MAXWELL CBC WITH MANUAL [id number] 01:02:00 Test Item Value Reference Range Comments WBC (test code=WBC) 15.0 10\S\3/uL 4.5-11.0 RBC (test code=RBC) 4.70 10\S\6/uL 4.30-5.70 HGB (test code=HBG) 13.5 g/dL 12.0-15.5 HCT (test code=HCT) 37.8 % 35.0-44.0 MCV (test code=MCV) 80.4 fL 81.0-99.0 MCH (test code=MCH) 28.7 pg 27.0-31.0 MCHC (test code=MCHC) 35.7 g/dL 32.0-36.0 RDW (test code=RDW) 13.1 % 11.5-14.5 PLT (test code=PLT) 293 10\S\3/uL 130-400 MPV (test code=MPV) 11.1 fL 9.4-12.4 NEUTROP # (test code=NE#) 11.3 10\S\3/uL 1.6-8.0 LYMPH # (test code=LY#) 2.9 10\S\3/uL 1.1-3.5 MONOCYTE # (test code=MO#) 0.6 10\S\3/uL 0.0-1.1 EOSINOPH # (test code=EO#) 0.0 10\S\3/uL 0.0-0.7 BASOPHIL # (test code=BA#) 0.1 10\S\3/uL 0.0-0.3 IG # (test code=IG#) 0.13 10\S\3/uL 0.00-0.06 NRBC # (test code=NRBC#) 0.00 10\S\3/uL 0.00-0.01 NEUTROPH % (test code=NE%) 75.5 % 35.0-73.0 LYMPH % (test code=LY%) 19.1 % 20.0-55.0 MONO % (test code=MO%) 3.9 % 2.5-10.0 EOSINOPH % (test code=EO%) 0.1 % 0.0-5.0 BASOPHIL % (test code=BA%) 0.5 % 0.0-2.0 IG % (test code=IG%) 0.9 % 0.0-0.8 NRBC% (test code=NRBC%) 0.0 % 0.0-0.2 MAN DIFF (test code=HMDIFF) MANUAL DIFFERENTIAL SEG (test code=SEG) 79 % 42-75 BAND (test code=BAND) 1 % 0-8 LYMPH (test code=LYMPH) 15 % 20-51 MONO (test code=MONO) 5 % 3-11 EOS (test code=EOS) 0 % 0-10 BASO (test code=BASO) 0 % 0-2 RBC MORPH (test code=RBCMORN) NORMAL NORMAL PLT EST (test code=PLTEST) ADEQUATE ADEQUATE PLT MORPH (test code=PLTMOR) NORMAL (1.5-3 um) NORMAL BASIC METABOLIC [id number] 00:59:00 Test Item Value Reference Range Comments GLUCOSE (test code=06D) 289 mg/dL 75-100 SODIUM (test code=01A) 138 mmol/L 136-145 POTASSIUM (test code=01B) 2.2 mmol/L 3.6-5.1 CHLORIDE (test code=04A) 105 mmol/L 98-107 CO2 (test code=02A) 14 mmol/L 22-32 ANION GAP (test code=ANG) 21.2 mmol/L BUN (test code=05D) 9 mg/dL 7-18 CREATININE (test code=03E) 1.3 mg/dL 0.4-1.1 BUN/CREA (test code=BCR) 7 12-20 CALCIUM (test code=09D) 8.3 mg/dL 8.3-9.5 [id number] 00:58:00 Test Item Value Reference Range Comments MAGNESIUM (test code=48A) 0.8 mg/dL 1.8-2.4 PHOSPHORUS (P04)[id number] 00:57:00 Test Item Value Reference Range Comments PHOSPHORUS (test code=43D) 0.5 mg/dL 2.7-4.6 [id number] 00:51:00 Test Item Value Reference Range Comments Hb A1C % (test code=HBA) 12.1 % 4.2-6.3 GLUCOMETER GLUCOSE- LAB USE [id number] 00:21:00 Test Item Value Reference Range Comments GLUCOMETER (test code=GMG) 313 mg/dL 70-100 Meter ID: [id number]: [id number] DEVON CARTER GLUCOMETER GLUCOSE- LAB USE [id number] 23:10:00 Test Item Value Reference Range Comments GLUCOMETER (test code=GMG) 361 mg/dL 70-100 Meter ID: [id number]: [id number] SHRUTHI MAXWELL Arterial Blood [id number] 22:26:00 Test Item Value Reference Range Comments pH (test code=PHRT) 7.297 7.350-7.450 pCO2 (test code=PCO2RT) 22.2 mmHg 35.0-45.0 pO2 (test code=PO2RT) 60.5 mmHg 80.0-110.0 HCO3? (test code=HCO3) 10.5 mmol/L 22.0-26.0 KAMAR (test code=KAMAR) -14.2 mmol/L -3.0-3.0 tHb (test code=THBRT) 13.5 g/dL 12.0-15.5 sO2 (test code=SO2RT) 88.1 % 92.0-100.0 FO2Hb (test code=VA6SLNI) 85.9 % 94.0-100.0 FCOHb (test code=FCOHBRT) 1.2 % 0.0-3.0 FMetHb (test code=FMETHBRT) 1.2 % 0.2-0.6 ABGTEMP (test code=ABGTEMP) * Temp Corrected Values* ABGTEMP (test code=ABGTEMP.) 37.0 ?C pH (T) (test code=PHTEMP) 7.297 7.350-7.450 pCO2 (T) (test code=GZF0JQKO) 22.2 mmHg 35.0-45.0 pO2 (T) (test code=OF3DVAD) 60.5 mmHg 80.0-110.0 Device (test code=DEVICE) ROOM AIR FI02 (test code=FI02) 21.0 % Liter_flow (test code=LF) VENPAR (test code=VENPAR) * Ventilator Parameters * SIMV (test code=SIMV) A/C (test code=A/C) CPAP (test code=CPAP) PEEP (test code=PEEP) PS (test code=PS) PIP (test code=PIP) I_Time (test code=ITIME) Vt (test code=VT) BIPAP INSP (test code=BIPAPINP) BIPAP EXP (test code=BIPAPEXP) Miguel test (test code=ATEST) Positive SAMPLE SITE (test code=SSITE) Left Radial Artery COMMENT (test code=CO) GLUCOMETER GLUCOSE- LAB USE [id number] 21:58:00 Test Item Value Reference Range Comments GLUCOMETER (test code=GMG) 391 mg/dL 70-100 Meter ID: [id number]: 5015 DEVON CARTER MR, CARDIAC WITHOUT [id number] 07:53:00Reason for Exam:-> tachycardiaFINAL REPORT Cardiac MRI, 26 July 2017 INDICATION: This is a 22-year old young lady with tachycardia presents for compressive cardiac assessment. TECHNIQUE: Jeannine ACHIEVAMRI scanner. Morphologic and dynamic cine imaging was performed in multiple projections before and after contrast administration. Thereafter, gadolinium was administered, which was then followed by viability/scar imaging. A phased array surface coil was used for enhanced resolution and beqwwx-sw-jngwu ratio. Please refer to the contrast sheet scanned in the EPIC system for the amount and route of contrast given. Patient weighs approximately 65 pounds, with height of 49 inches. Scanning blood pressure was 113/69. FINDINGS: The chest wall and mediastinum are remarkable. Limited imaging of the lungs reveals no gross abnormality; MR is not optimised in the assessment of pulmonary parenchymal lungdisease. The cardiac chambers demonstrate normal atrioventricular concordance and systemic and pulmonary venous return. The thoracic aorta is normal in course, caliber, and contour. The aortic arch isleft -sided. The arch vessel branching pattern is normal. The pericardium and pulmonary arteries have normal appearance; no pericardial effusion is seen, and the central pulmonary artery is normal in calibre. In the MRI data set, the heart is located somewhat in the centre of the thorax (likely just anormal variant) though the apex is still pointing to the left (i.e. normal). The abdominal situs appears to be normal when this level is on the right side of the abdomen. The left ventricle is normal in size, shape, and function. There are no segmental wall motion abnormalities. Quantitative values are as follows : EDV=49 cc; ESV=17 cc; stroke volume=32 cc; and ejection fraction=65%. Calculated absolute cardiac output=3.8 liters/min. Absolute left ventricular mass=37 grams. There is no evidence ofhypertrophic cardiomyopathy or left ventricular non-compaction. Normal systolic thickening is seen in the left ventricular outflow tract. Viability / scar imaging reveals full thickness, viable myocardium in the entire left ventricle. There is no prior myocardial damage. Ventricular thrombus is notidentified. A focus examination was performed in the [...] right ventricular functional values are as follows: EDV=50 cc; ESV=13 cc; stroke volume=36 cc; and ejection fraction=73%. Cine imaging and flow quantification reveal normal aortic, mitral, and tricuspid valve function. In the cine imaging, no evidence of mitral valve prolapse is appreciated in the traditional parasternal long axis orientation. No aortic stenosis is seen. CONCLUSIONS: 1. The left ventricle is normal in size and function. Ejection fraction is quantified to be 65%. Quantitative left ventricular functional values are asdescribed above. Viability/scar imaging reveals full thickness, viable [...] administration. Quantitative right ventricular functional values are asdescribed above. 3. Note, scanning heart rate was at least 110 bpm during the entire examination. Signed: Jb Arora MDReport Verified Date/Time: 07/30/2017 07:53:01 Reading Location: [facility] B1 P047 Cardiology MRI COMPREHENSIVE METABOLIC [id number] 18:32:00 Test Item Value Reference Range Comments GLUCOSE (test code=06D) 299 mg/dL 75-100 SODIUM (test code=01A) 141 mmol/L 136-145 POTASSIUM (test code=01B) 3.8 mmol/L 3.6-5.1 CHLORIDE (test code=04A) 101 mmol/L 98-107 CO2 (test code=02A) 30 mmol/L 22-32 ANION GAP (test code=ANG) 13.8 mmol/L BUN (test code=05D) 13 mg/dL 7-18 CREATININE (test code=03E) 0.9 mg/dL 0.4-1.1 BUN/CREA R (test code=BCR) 14 12-20 CALCIUM (test code=09D) 7.9 mg/dL 8.3-9.5 BILI TOTAL (test code=11A) 0.2 mg/dL 0.2-1.0 PROTEIN (test code=07D) 6.0 g/dL 6.4-8.2 ALBUMIN (test code=08D) 3.0 g/dL 3.5-4.8 GLOBULIN (test code=GLB) 3.0 g/dL 1.5-3.8 ALB/GLOB (test code=AGRR) 1.0 1.0-2.6 ALK PHOS (test code=35A) 111 IU/L 42-121 AST (test code=30A) 100 IU/L <=42 ALT (test code=31A) 35 IU/L <=78 GLUCOMETER GLUCOSE- LAB USE [id number] 15:57:00 Test Item Value Reference Range Comments GLUCOMETER (test code=GMG) 293 mg/dL 70-100 Meter ID: [id number]: 3966 PAM RAJU GLUCOMETER GLUCOSE- LAB USE [id number] 11:30:00 Test Item Value Reference Range Comments GLUCOMETER (test code=GMG) 87 mg/dL 70-100 Meter ID: [id number]: 3966 PAM RAJU OSMOLARITY [id number] 08:06:00 Test Item Value Reference Range Comments OSMOLALITY (SERUM) (test 307 mOsm/kg 278-305 TEST PERFORMED AT:QUEST [id number]) DIAGNOSTICS-[id number] [facility].JF, [place]ANETTE [address]ZIYKMPHOSSEIN THORNE MD BASIC METABOLIC [id number] 06:58:00 Test Item Value Reference Range Comments GLUCOSE (test code=06D) 205 mg/dL 75-100 SODIUM (test code=01A) 138 mmol/L 136-145 POTASSIUM (test code=01B) 3.3 mmol/L 3.6-5.1 CHLORIDE (test code=04A) 101 mmol/L 98-107 CO2 (test code=02A) 30 mmol/L 22-32 ANION GAP (test code=ANG) 10.3 mmol/L BUN (test code=05D) 9 mg/dL 7-18 CREATININE (test code=03E) 0.6 mg/dL 0.4-1.1 BUN/CREA R (test code=BCR) 15 12-20 CALCIUM (test code=09D) 8.1 mg/dL 8.3-9.5 GLUCOMETER GLUCOSE- LAB USE [id number] 06:37:00 Test Item Value Reference Range Comments GLUCOMETER (test code=GMG) 197 mg/dL 70-100 DAILY MAINTENANCECLEANED METERMeter ID: [id number]: [id number] DEREK MCKNIGHT CBC (INCLUDES AUTOMATED DIFFERENTIAL)2016-10-08 06:27:00 Test Item Value Reference Range Comments WBC (test code=WBC) 5.1 10\S\3/uL 4.5-11.0 RBC (test code=RBC) 3.98 10\S\6/uL 4.30-5.70 HGB (test code=HBG) 11.7 g/dL 12.0-15.5 HCT (test code=HCT) 33.8 % 35.0-44.0 MCV (test code=MCV) 84.9 fL 81.0-99.0 MCH (test code=MCH) 29.4 pg 27.0-31.0 MCHC (test code=MCHC) 34.6 g/dL 32.0-36.0 RDW (test code=RDW) 12.6 % 11.5-14.5 PLT (test code=PLT) 126 10\S\3/uL 130-400 MPV (test code=MPV) 11.5 fL 9.4-12.4 NEUTROP # (test code=NE#) 2.5 10\S\3/uL 1.6-8.0 LYMPH # (test code=LY#) 2.0 10\S\3/uL 1.1-3.5 MONOCYTE # (test code=MO#) 0.5 10\S\3/uL 0.0-1.1 EOSINOPH # (test code=EO#) 0.0 10\S\3/uL 0.0-0.7 BASOPHIL # (test code=BA#) 0.0 10\S\3/uL 0.0-0.3 IG # (test code=IG#) 0.04 10\S\3/uL 0.00-0.06 NRBC # (test code=NRBC#) 0.00 10\S\3/uL 0.00-0.01 NEUTROPH % (test code=NE%) 48.8 % 35.0-73.0 LYMPH % (test code=LY%) 39.4 % 20.0-55.0 MONO % (test code=MO%) 9.8 % 2.5-10.0 EOSINOPH % (test code=EO%) 0.8 % 0.0-5.0 BASOPHIL % (test code=BA%) 0.4 % 0.0-2.0 IG % (test code=IG%) 0.8 % 0.0-0.8 NRBC% (test code=NRBC%) 0.0 % 0.0-0.2 MANDIFF (test code=MDIFF) NO NO RBC MORPH (test code=RBCMOR) NORMAL GLUCOMETER GLUCOSE- LAB USE [id number] 21:47:00 Test Item Value Reference Range Comments GLUCOMETER (test code=GMG) 246 mg/dL 70-100 Meter ID: [id number]: 5015 DEVON KRUEGEROLOLA GLUCOMETER GLUCOSE- LAB USE [id number] 16:31:00 Test Item Value Reference Range Comments GLUCOMETER (test code=GMG) 271 mg/dL 70-100 Meter ID: [id number]: [address] [facility] BASIC METABOLIC [id number] 14:53:00 Test Item Value Reference Range Comments GLUCOSE (test code=06D) 335 mg/dL 75-100 SODIUM (test code=01A) 137 mmol/L 136-145 POTASSIUM (test code=01B) 3.7 mmol/L 3.6-5.1 CHLORIDE (test code=04A) 99 mmol/L 98-107 CO2 (test code=02A) 29 mmol/L 22-32 ANION GAP (test code=ANG) 12.7 mmol/L BUN (test code=05D) 5 mg/dL 7-18 CREATININE (test code=03E) 0.9 mg/dL 0.4-1.1 BUN/CREA R (test code=BCR) 6 12-20 CALCIUM (test code=09D) 7.9 mg/dL 8.3-9.5 [id number] 14:49:00 Test Item Value Reference Range Comments MAGNESIUM (test code=48A) 2.9 mg/dL 1.8-2.4 GLUCOMETER GLUCOSE- LAB USE [id number] 12:23:00 Test Item Value Reference Range Comments GLUCOMETER (test code=GMG) 290 mg/dL 70-100 Meter ID: [id number]: [address] [facility] [id number] 10:17:00 Test Item Value Reference Range Comments MAGNESIUM (test code=48A) 1.0 mg/dL 1.8-2.4 GLUCOMETER GLUCOSE- LAB USE [id number] 07:49:00 Test Item Value Reference Range Comments GLUCOMETER (test code=GMG) 283 mg/dL 70-100 Meter ID: [id number]: [address] [facility] CBC (INCLUDES AUTOMATED DIFFERENTIAL)2016-10-07 07:13:00 Test Item Value Reference Range Comments WBC (test code=WBC) 7.0 10\S\3/uL 4.5-11.0 RBC (test code=RBC) 3.96 10\S\6/uL 4.30-5.70 HGB (test code=HBG) 11.8 g/dL 12.0-15.5 HCT (test code=HCT) 32.9 % 35.0-44.0 MCV (test code=MCV) 83.1 fL 81.0-99.0 MCH (test code=MCH) 29.8 pg 27.0-31.0 MCHC (test code=MCHC) 35.9 g/dL 32.0-36.0 RDW (test code=RDW) 12.3 % 11.5-14.5 PLT (test code=PLT) 130 10\S\3/uL 130-400 MPV (test code=MPV) 11.7 fL 9.4-12.4 NEUTROP # (test code=NE#) 3.3 10\S\3/uL 1.6-8.0 LYMPH # (test code=LY#) 2.8 10\S\3/uL 1.1-3.5 MONOCYTE # (test code=MO#) 0.7 10\S\3/uL 0.0-1.1 EOSINOPH # (test code=EO#) 0.1 10\S\3/uL 0.0-0.7 BASOPHIL # (test code=BA#) 0.0 10\S\3/uL 0.0-0.3 IG # (test code=IG#) 0.06 10\S\3/uL 0.00-0.06 NRBC # (test code=NRBC#) 0.00 10\S\3/uL 0.00-0.01 NEUTROPH % (test code=NE%) 47.8 % 35.0-73.0 LYMPH % (test code=LY%) 40.5 % 20.0-55.0 MONO % (test code=MO%) 9.3 % 2.5-10.0 EOSINOPH % (test code=EO%) 0.9 % 0.0-5.0 BASOPHIL % (test code=BA%) 0.6 % 0.0-2.0 IG % (test code=IG%) 0.9 % 0.0-0.8 NRBC% (test code=NRBC%) 0.0 % 0.0-0.2 MANDIFF (test code=MDIFF) NO NO RBC MORPH (test code=RBCMOR) NORMAL BASIC METABOLIC [id number] 07:01:00 Test Item Value Reference Range Comments GLUCOSE (test code=06D) 276 mg/dL 75-100 SODIUM (test code=01A) 138 mmol/L 136-145 POTASSIUM (test code=01B) 2.6 mmol/L 3.6-5.1 CHLORIDE (test code=04A) 98 mmol/L 98-107 CO2 (test code=02A) 32 mmol/L 22-32 ANION GAP (test code=ANG) 10.6 mmol/L BUN (test code=05D) 6 mg/dL 7-18 CREATININE (test code=03E) 0.8 mg/dL 0.4-1.1 BUN/CREA R (test code=BCR) 8 12-20 CALCIUM (test code=09D) 8.0 mg/dL 8.3-9.5 GLUCOMETER GLUCOSE- LAB USE [id number] 20:52:00 Test Item Value Reference Range Comments GLUCOMETER (test code=GMG) 312 mg/dL 70-100 Meter ID: [id number]: 5015 DEVON KRUEGEROLOLA GLUCOMETER GLUCOSE- LAB USE [id number] 16:03:00 Test Item Value Reference Range Comments GLUCOMETER (test code=GMG) 408 mg/dL 70-100 CLEANED METERMeter ID: [id number]: 0832 MARCI DILLARDY GLUCOMETER GLUCOSE- LAB USE [id number] 10:51:00 Test Item Value Reference Range Comments GLUCOMETER (test code=GMG) 320 mg/dL 70-100 CLEANED METERMeter ID: [id number]: 0832 MARCI DILLARDY [id number] 09:22:00 Test Item Value Reference Range Comments A1C % (test code=HBA) 14.6 % 4.2-6.3 GLUCOMETER GLUCOSE- LAB USE [id number] 09:15:00 Test Item Value Reference Range Comments GLUCOMETER (test code=GMG) 87 mg/dL 70-100 CLEANED METERMeter ID: [id number]: 0832 MARCI DILLARDY BASIC METABOLIC [id number] 09:04:00 Test Item Value Reference Range Comments GLUCOSE (test code=06D) 118 mg/dL 75-100 SODIUM (test code=01A) 141 mmol/L 136-145 POTASSIUM (test code=01B) 2.4 mmol/L 3.6-5.1 CHLORIDE (test code=04A) 104 mmol/L 98-107 CO2 (test code=02A) 29 mmol/L 22-32 ANION GAP (test code=ANG) 10.4 mmol/L BUN (test code=05D) 6 mg/dL 7-18 CREATININE (test code=03E) 1.0 mg/dL 0.4-1.1 BUN/CREA R (test code=BCR) 6 12-20 CALCIUM (test code=09D) 7.8 mg/dL 8.3-9.5 [id number] 08:53:00 Test Item Value Reference Range Comments MAGNESIUM (test code=48A) 1.1 mg/dL 1.8-2.4 BASIC METABOLIC [id number] 08:45:00 Test Item Value Reference Range Comments GLUCOSE (test code=06D) 169 mg/dL 75-100 SODIUM (test code=01A) 146 mmol/L 136-145 POTASSIUM (test code=01B) 6.6 mmol/L 3.6-5.1 CHLORIDE (test code=04A) 118 mmol/L 98-107 CO2 (test code=02A) 18 mmol/L 22-32 ANION GAP (test code=ANG) 16.6 mmol/L BUN (test code=05D) 5 mg/dL 7-18 CREATININE (test code=03E) 0.6 mg/dL 0.4-1.1 BUN/CREA R (test code=BCR) 9 12-20 CALCIUM (test code=09D) 5.6 mg/dL 8.3-9.5 Arterial Blood [id number] 08:40:00 Test Item Value Reference Range Comments pH (test code=PHRT) 7.446 7.350-7.450 pCO2 (test code=PCO2RT) 37.9 mmHg 35.0-45.0 pO2 (test code=PO2RT) 97.7 mmHg 80.0-110.0 HCO3? (test code=HCO3) 25.7 mmol/L 22.0-26.0 KAMAR (test code=KAMAR) 2.1 mmol/L -3.0-3.0 tHb (test code=THBRT) 11.9 g/dL 12.0-15.5 sO2 (test code=SO2RT) 98.3 % 92.0-100.0 FO2Hb (test code=HR8BFVI) 96.0 % 94.0-100.0 FCOHb (test code=FCOHBRT) 1.7 % 0.0-3.0 FMetHb (test code=FMETHBRT) 0.6 % 0.2-0.6 ABGTEMP (test code=ABGTEMP) * Temp Corrected Values* ABGTEMP (test code=ABGTEMP.) 37.0 ?C pH (T) (test code=PHTEMP) 7.446 7.350-7.450 pCO2 (T) (test code=IUQ3BSRA) 37.9 mmHg 35.0-45.0 pO2 (T) (test code=SE3CXQM) 97.7 mmHg 80.0-110.0 Device (test code=DEVICE) ROOM AIR FI02 (test code=FI02) 21.0 % Liter_flow (test code=LF) VENPAR (test code=VENPAR) * Ventilator Parameters * SIMV (test code=SIMV) A/C (test code=A/C) CPAP (test code=CPAP) PEEP (test code=PEEP) PS (test code=PS) PIP (test code=PIP) I_Time (test code=ITIME) Vt (test code=VT) BIPAP INSP (test code=BIPAPINP) BIPAP EXP (test code=BIPAPEXP) Miguel test (test code=ATEST) Positive SAMPLE SITE (test code=SSITE) Left Radial Artery COMMENT (test code=CO) GLUCOMETER GLUCOSE- LAB USE [id number] 08:24:00 Test Item Value Reference Range Comments GLUCOMETER (test code=GMG) 93 mg/dL 70-100 CLEANED METERMeter ID: [id number]: 0832 MARCI GARAY GLUCOMETER GLUCOSE- LAB USE [id number] 07:09:00 Test Item Value Reference Range Comments GLUCOMETER (test code=GMG) 161 mg/dL 70-100 Meter ID: [id number]: 5143 DOLLY WILLETT CBC (INCLUDES AUTOMATED DIFFERENTIAL)2016-10-06 06:48:00 Test Item Value Reference Range Comments WBC (test code=WBC) 7.7 10\S\3/uL 4.5-11.0 RBC (test code=RBC) 3.07 10\S\6/uL 4.30-5.70 HGB (test code=HBG) 9.4 g/dL 12.0-15.5 HCT (test code=HCT) 25.7 % 35.0-44.0 MCV (test code=MCV) 83.7 fL 81.0-99.0 MCH (test code=MCH) 30.6 pg 27.0-31.0 MCHC (test code=MCHC) 36.6 g/dL 32.0-36.0 RDW (test code=RDW) 12.2 % 11.5-14.5 PLT (test code=PLT) 142 10\S\3/uL 130-400 MPV (test code=MPV) 12.2 fL 9.4-12.4 NEUTROP # (test code=NE#) 5.7 10\S\3/uL 1.6-8.0 LYMPH # (test code=LY#) 1.6 10\S\3/uL 1.1-3.5 MONOCYTE # (test code=MO#) 0.3 10\S\3/uL 0.0-1.1 EOSINOPH # (test code=EO#) 0.0 10\S\3/uL 0.0-0.7 BASOPHIL # (test code=BA#) 0.0 10\S\3/uL 0.0-0.3 IG # (test code=IG#) 0.06 10\S\3/uL 0.00-0.06 NRBC # (test code=NRBC#) 0.00 10\S\3/uL 0.00-0.01 NEUTROPH % (test code=NE%) 73.9 % 35.0-73.0 LYMPH % (test code=LY%) 21.0 % 20.0-55.0 MONO % (test code=MO%) 3.7 % 2.5-10.0 EOSINOPH % (test code=EO%) 0.1 % 0.0-5.0 BASOPHIL % (test code=BA%) 0.5 % 0.0-2.0 IG % (test code=IG%) 0.8 % 0.0-0.8 NRBC% (test code=NRBC%) 0.0 % 0.0-0.2 MANDIFF (test code=MDIFF) NO NO RBC MORPH (test code=RBCMOR) NORMAL GLUCOMETER GLUCOSE- LAB USE [id number] 05:17:00 Test Item Value Reference Range Comments GLUCOMETER (test code=GMG) 250 mg/dL 70-100 Meter ID: [id number]: 5143 DOLLY WILLETT BASIC METABOLIC [id number] 04:49:00 Test Item Value Reference Range Comments GLUCOSE (test code=06D) 267 mg/dL 75-100 SODIUM (test code=01A) 142 mmol/L 136-145 POTASSIUM (test code=01B) 2.6 mmol/L 3.6-5.1 CHLORIDE (test code=04A) 103 mmol/L 98-107 CO2 (test code=02A) 21 mmol/L 22-32 ANION GAP (test code=ANG) 20.6 mmol/L BUN (test code=05D) 8 mg/dL 7-18 CREATININE (test code=03E) 1.2 mg/dL 0.4-1.1 BUN/CREA R (test code=BCR) 7 12-20 CALCIUM (test code=09D) 7.9 mg/dL 8.3-9.5 Venous Blood [id number] 04:24:00 Test Item Value Reference Range Comments VpH (test code=VPHRT) 7.328 7.300-7.400 VpCO2 (test code=SLHV8RW) 42.3 mmHg 40.0-50.0 VpO2 (test code=VPO2RT) 24.1 mmHg 30.0-40.0 HCO3? (test code=HCO3) 21.6 mmol/L 22.0-26.0 KAMAR (test code=KAMAR) -3.7 mmol/L -3.0-3.0 tHb (test code=THBRT) 13.2 g/dL 12.0-15.5 vsO2 (test code=VSO2RT) 37.5 % 55.0-75.0 FO2Hb (test code=UU3WCKUH) 36.8 % FCOHb (test code=FCOHBRTV) 0.9 % FMetHb (test code=FMETHBRTV) 0.9 % ABGTEMP (test code=ABGTEMP) * Temp Corrected Values* ABGTEMP (test code=ABGTEMP.) 37.0 ?C pH (T) (test code=PHTEMPV) 7.328 7.300-7.400 pCO2 (T) (test code=CEX5OAUFI) 42.3 mmHg 40.0-50.0 pO2 (T) (test code=MY5BCBGO) 24.1 mmHg 30.0-40.0 Device (test code=DEVICE) ROOM AIR FI02 (test code=FI02) 21.0 % Liter_flow (test code=LF) VENPAR (test code=VENPAR) * Ventilator Parameters * SIMV (test code=SIMV) A/C (test code=A/C) CPAP (test code=CPAP) PEEP (test code=PEEP) PS (test code=PS) PIP (test code=PIP) I_Time (test code=ITIME) Vt (test code=VT) BIPAP INSP (test code=BIPAPINP) BIPAP EXP (test code=BIPAPEXP) SAMPLE SITE (test code=SSITE) Vein COMMENT (test code=CO) GLUCOMETER GLUCOSE- LAB USE [id number] 03:45:00 Test Item Value Reference Range Comments GLUCOMETER (test code=GMG) 268 mg/dL 70-100 Meter ID: [id number]: 5143 DAWSONMISTI IRVINAlvina [facility] BASIC METABOLIC [id number] 02:37:00 Test Item Value Reference Range Comments GLUCOSE (test code=06D) 425 mg/dL 75-100 SODIUM (test code=01A) 140 mmol/L 136-145 POTASSIUM (test code=01B) 2.3 mmol/L 3.6-5.1 CHLORIDE (test code=04A) 101 mmol/L 98-107 CO2 (test code=02A) 14 mmol/L 22-32 ANION GAP (test code=ANG) 27.3 mmol/L BUN (test code=05D) 9 mg/dL 7-18 CREATININE (test code=03E) 1.1 mg/dL 0.4-1.1 BUN/CREA R (test code=BCR) 8 12-20 CALCIUM (test code=09D) 7.7 mg/dL 8.3-9.5 CBC WITH MANUAL [id number] 00:52:00 Test Item Value Reference Range Comments WBC (test code=WBC) 9.5 10\S\3/uL 4.5-11.0 RBC (test code=RBC) 4.20 10\S\6/uL 4.30-5.70 HGB (test code=HBG) 12.7 g/dL 12.0-15.5 HCT (test code=HCT) 35.7 % 35.0-44.0 MCV (test code=MCV) 85.0 fL 81.0-99.0 MCH (test code=MCH) 30.2 pg 27.0-31.0 MCHC (test code=MCHC) 35.6 g/dL 32.0-36.0 RDW (test code=RDW) 12.4 % 11.5-14.5 PLT (test code=PLT) 193 10\S\3/uL 130-400 MPV (test code=MPV) 11.7 fL 9.4-12.4 NEUTROP # (test code=NE#) 5.5 10\S\3/uL 1.6-8.0 LYMPH # (test code=LY#) 2.9 10\S\3/uL 1.1-3.5 MONOCYTE # (test code=MO#) 0.8 10\S\3/uL 0.0-1.1 EOSINOPH # (test code=EO#) 0.0 10\S\3/uL 0.0-0.7 BASOPHIL # (test code=BA#) 0.1 10\S\3/uL 0.0-0.3 IG # (test code=IG#) 0.13 10\S\3/uL 0.00-0.06 NRBC # (test code=NRBC#) 0.00 10\S\3/uL 0.00-0.01 NEUTROPH % (test code=NE%) 58.3 % 35.0-73.0 LYMPH % (test code=LY%) 30.9 % 20.0-55.0 MONO % (test code=MO%) 8.4 % 2.5-10.0 EOSINOPH % (test code=EO%) 0.2 % 0.0-5.0 BASOPHIL % (test code=BA%) 0.8 % 0.0-2.0 IG % (test code=IG%) 1.4 % 0.0-0.8 NRBC% (test code=NRBC%) 0.0 % 0.0-0.2 MAN DIFF (test code=HMDIFF) MANUAL DIFFERENTIAL SEG (test code=SEG) 62 % 42-75 BAND (test code=BAND) 0 % 0-8 LYMPH (test code=LYMPH) 29 % 20-51 MONO (test code=MONO) 9 % 3-11 EOS (test code=EOS) 0 % 0-10 BASO (test code=BASO) 0 % 0-2 RBC MORPH (test code=RBCMORN) NORMAL NORMAL PLT EST (test code=PLTEST) ADEQUATE ADEQUATE PLT MORPH (test code=PLTMOR) NORMAL (1.5-3 um) NORMAL [id number] 00:48:00 Test Item Value Reference Range Comments MAGNESIUM (test code=48A) 1.3 mg/dL 1.8-2.4 BASIC METABOLIC [id number] 00:47:00 Test Item Value Reference Range Comments GLUCOSE (test code=06D) 482 mg/dL 75-100 SODIUM (test code=01A) 136 mmol/L 136-145 POTASSIUM (test code=01B) 3.1 mmol/L 3.6-5.1 CHLORIDE (test code=04A) 96 mmol/L 98-107 CO2 (test code=02A) 17 mmol/L 22-32 ANION GAP (test code=ANG) 26.1 mmol/L BUN (test code=05D) 10 mg/dL 7-18 CREATININE (test code=03E) 1.2 mg/dL 0.4-1.1 BUN/CREA R (test code=BCR) 9 12-20 CALCIUM (test code=09D) 8.1 mg/dL 8.3-9.5 [id number] 00:41:00 Test Item Value Reference Range Comments A1C % (test code=HBA) 14.6 % 4.2-6.3 PHOSPHORUS (P04)2016-10-06 00:34:00 Test Item Value Reference Range Comments PHOSPHORUS (test code=43D) 2.3 mg/dL 2.7-4.6 Venous Blood [id number] 00:19:00 Test Item Value Reference Range Comments VpH (test code=VPHRT) 7.316 7.300-7.400 VpCO2 (test code=WDFJ2EG) 31.8 mmHg 40.0-50.0 VpO2 (test code=VPO2RT) 43.7 mmHg 30.0-40.0 HCO3? (test code=HCO3) 15.8 mmol/L 22.0-26.0 KAMAR (test code=KAMAR) -9.0 mmol/L -3.0-3.0 tHb (test code=THBRT) 12.4 g/dL 12.0-15.5 vsO2 (test code=VSO2RT) 73.4 % 55.0-75.0 FO2Hb (test code=GY5HUOLW) 71.5 % FCOHb (test code=FCOHBRTV) 1.4 % FMetHb (test code=FMETHBRTV) 1.2 % ABGTEMP (test code=ABGTEMP) * Temp Corrected Values* ABGTEMP (test code=ABGTEMP.) 37.0 ?C pH (T) (test code=PHTEMPV) 7.316 7.300-7.400 pCO2 (T) (test code=TWC3EAZAZ) 31.8 mmHg 40.0-50.0 pO2 (T) (test code=PA7MYTTC) 43.7 mmHg 30.0-40.0 Device (test code=DEVICE) ROOM AIR FI02 (test code=FI02) 21.0 % Liter_flow (test code=LF) VENPAR (test code=VENPAR) * Ventilator Parameters * SIMV (test code=SIMV) A/C (test code=A/C) CPAP (test code=CPAP) PEEP (test code=PEEP) PS (test code=PS) PIP (test code=PIP) I_Time (test code=ITIME) Vt (test code=VT) BIPAP INSP (test code=BIPAPINP) BIPAP EXP (test code=BIPAPEXP) SAMPLE SITE (test code=SSITE) Vein COMMENT (test code=CO) Arterial Blood [id number] 00:03:00 Test Item Value Reference Range Comments pH (test code=PHRT) 7.361 7.350-7.450 pCO2 (test code=PCO2RT) 26.5 mmHg 35.0-45.0 pO2 (test code=PO2RT) 98.6 mmHg 80.0-110.0 HCO3? (test code=HCO3) 14.6 mmol/L 22.0-26.0 KAMAR (test code=KAMAR) -9.1 mmol/L -3.0-3.0 tHb (test code=THBRT) 12.5 g/dL 12.0-15.5 sO2 (test code=SO2RT) 97.1 % 92.0-100.0 FO2Hb (test code=OB9XKTR) 94.6 % 94.0-100.0 FCOHb (test code=FCOHBRT) 1.6 % 0.0-3.0 FMetHb (test code=FMETHBRT) 1.0 % 0.2-0.6 ABGTEMP (test code=ABGTEMP) * Temp Corrected Values* ABGTEMP (test code=ABGTEMP.) 37.0 ?C pH (T) (test code=PHTEMP) 7.361 7.350-7.450 pCO2 (T) (test code=VLI7YKKC) 26.5 mmHg 35.0-45.0 pO2 (T) (test code=GE6NJYM) 98.6 mmHg 80.0-110.0 Device (test code=DEVICE) ROOM AIR FI02 (test code=FI02) 21.0 % Liter_flow (test code=LF) VENPAR (test code=VENPAR) * Ventilator Parameters * SIMV (test code=SIMV) A/C (test code=A/C) CPAP (test code=CPAP) PEEP (test code=PEEP) PS (test code=PS) PIP (test code=PIP) I_Time (test code=ITIME) Vt (test code=VT) BIPAP INSP (test code=BIPAPINP) BIPAP EXP (test code=BIPAPEXP) Miguel test (test code=ATEST) Positive SAMPLE SITE (test code=SSITE) Right Radial Artery COMMENT (test code=CO) BLOOD [id number] 14:43:00 Test Item Value Reference Range Comments Culture Observations (test code=COB1) NO GROWTH AFTER 5 DAYS BLOOD [id number] 14:43:00 Test Item Value Reference Range Comments Culture Observations (test code=COB1) NO GROWTH AFTER 5 DAYS DIRECT STREP GROUP [id number] 12:21:00 Test Item Value Reference Range Comments Culture Observations (test NO BETA HEMOLYTIC code=COB1) STREPTOCOCCUS ISOLATED Direct Exam (test code=DE1) NEGATIVE FOR STREP A ANTIGEN GLUCOMETER GLUCOSE- LAB USE [id number] 11:07:00 Test Item Value Reference Range Comments GLUCOMETER (test code=GMG) 187 mg/dL 70-100 CLEANED METERMeter ID: [id number]: [id number] SIRI DINO GLUCOMETER GLUCOSE- LAB USE [id number] 08:18:00 Test Item Value Reference Range Comments GLUCOMETER (test code=GMG) 301 mg/dL 70-100 CLEANED METERMeter ID: [id number]: [id number] SIRI DINO PHOSPHORUS (P04)2016-08-29 07:37:00 Test Item Value Reference Range Comments PHOSPHORUS (test code=43D) 2.8 mg/dL 2.7-4.6 COMPREHENSIVE METABOLIC [id number] 06:37:00 Test Item Value Reference Range Comments GLUCOSE (test code=06D) 249 mg/dL 75-100 SODIUM (test code=01A) 142 mmol/L 136-145 POTASSIUM (test code=01B) 4.2 mmol/L 3.6-5.1 CHLORIDE (test code=04A) 106 mmol/L 98-107 CO2 (test code=02A) 29 mmol/L 22-32 ANION GAP (test code=ANG) 11.2 mmol/L BUN (test code=05D) 13 mg/dL 7-18 CREATININE (test code=03E) 0.6 mg/dL 0.4-1.1 BUN/CREA R (test code=BCR) 23 12-20 CALCIUM (test code=09D) 6.8 mg/dL 8.3-9.5 BILI TOTAL (test code=11A) 0.5 mg/dL 0.2-1.0 PROTEIN (test code=07D) 5.2 g/dL 6.4-8.2 ALBUMIN (test code=08D) 2.5 g/dL 3.5-4.8 GLOBULIN (test code=GLB) 2.7 g/dL 1.5-3.8 ALB/GLOB (test code=AGRR) 0.9 1.0-2.6 ALK PHOS (test code=35A) 85 IU/L 42-121 AST (test code=30A) 32 IU/L <=42 ALT (test code=31A) 15 IU/L <=78 CBC (INCLUDES AUTOMATED DIFFERENTIAL)2016-08-29 05:30:00 Test Item Value Reference Range Comments WBC (test code=WBC) 6.2 10\S\3/uL 4.5-11.0 RBC (test code=RBC) 4.05 10\S\6/uL 4.30-5.70 HGB (test code=HBG) 12.1 g/dL 12.0-15.5 HCT (test code=HCT) 35.3 % 35.0-44.0 MCV (test code=MCV) 87.2 fL 81.0-99.0 MCH (test code=MCH) 29.9 pg 27.0-31.0 MCHC (test code=MCHC) 34.3 g/dL 32.0-36.0 RDW (test code=RDW) 12.5 % 11.5-14.5 PLT (test code=PLT) 108 10\S\3/uL 130-400 MPV (test code=MPV) 12.6 fL 9.4-12.4 NEUTROP # (test code=NE#) 3.0 10\S\3/uL 1.6-8.0 LYMPH # (test code=LY#) 2.4 10\S\3/uL 1.1-3.5 MONOCYTE # (test code=MO#) 0.7 10\S\3/uL 0.0-1.1 EOSINOPH # (test code=EO#) 0.0 10\S\3/uL 0.0-0.7 BASOPHIL # (test code=BA#) 0.0 10\S\3/uL 0.0-0.3 IG # (test code=IG#) 0.10 10\S\3/uL 0.00-0.06 NRBC # (test code=NRBC#) 0.00 10\S\3/uL 0.00-0.01 NEUTROPH % (test code=NE%) 48.9 % 35.0-73.0 LYMPH % (test code=LY%) 38.1 % 20.0-55.0 MONO % (test code=MO%) 10.5 % 2.5-10.0 EOSINOPH % (test code=EO%) 0.6 % 0.0-5.0 BASOPHIL % (test code=BA%) 0.3 % 0.0-2.0 IG % (test code=IG%) 1.6 % 0.0-0.8 NRBC% (test code=NRBC%) 0.0 % 0.0-0.2 MANDIFF (test code=MDIFF) NO NO RBC MORPH (test code=RBCMOR) NORMAL GLUCOMETER GLUCOSE- LAB USE [id number] 22:04:00 Test Item Value Reference Range Comments GLUCOMETER (test code=GMG) 147 mg/dL 70-100 Meter ID: [id number]: [id number] KODI AMODIA GLUCOMETER GLUCOSE- LAB USE [id number] 20:57:00 Test Item Value Reference Range Comments GLUCOMETER (test code=GMG) 262 mg/dL 70-100 Meter ID: [id number]: [id number] KODI AMODIA GLUCOMETER GLUCOSE- LAB USE [id number] 16:33:00 Test Item Value Reference Range Comments GLUCOMETER (test code=GMG) 292 mg/dL 70-100 CLEANED METERMeter ID: [id number]: [id number] DANISHA YORK GLUCOMETER GLUCOSE- LAB USE [id number] 11:24:00 Test Item Value Reference Range Comments GLUCOMETER (test code=GMG) 194 mg/dL 70-100 CLEANED METERMeter ID: [id number]: [id number] TALAT FATUMA CBC (INCLUDES AUTOMATED DIFFERENTIAL)2016-08-28 11:04:00 Test Item Value Reference Range Comments WBC (test code=WBC) 8.2 10\S\3/uL 4.5-11.0 RBC (test code=RBC) 3.93 10\S\6/uL 4.30-5.70 HGB (test code=HBG) 11.7 g/dL 12.0-15.5 HCT (test code=HCT) 33.2 % 35.0-44.0 MCV (test code=MCV) 84.5 fL 81.0-99.0 MCH (test code=MCH) 29.8 pg 27.0-31.0 MCHC (test code=MCHC) 35.2 g/dL 32.0-36.0 RDW (test code=RDW) 12.6 % 11.5-14.5 PLT (test code=PLT) 139 10\S\3/uL 130-400 MPV (test code=MPV) 12.1 fL 9.4-12.4 NEUTROP # (test code=NE#) 5.5 10\S\3/uL 1.6-8.0 LYMPH # (test code=LY#) 1.7 10\S\3/uL 1.1-3.5 MONOCYTE # (test code=MO#) 0.8 10\S\3/uL 0.0-1.1 EOSINOPH # (test code=EO#) 0.0 10\S\3/uL 0.0-0.7 BASOPHIL # (test code=BA#) 0.0 10\S\3/uL 0.0-0.3 IG # (test code=IG#) 0.07 10\S\3/uL 0.00-0.06 NRBC # (test code=NRBC#) 0.00 10\S\3/uL 0.00-0.01 NEUTROPH % (test code=NE%) 67.5 % 35.0-73.0 LYMPH % (test code=LY%) 21.2 % 20.0-55.0 MONO % (test code=MO%) 9.9 % 2.5-10.0 EOSINOPH % (test code=EO%) 0.1 % 0.0-5.0 BASOPHIL % (test code=BA%) 0.4 % 0.0-2.0 IG % (test code=IG%) 0.9 % 0.0-0.8 NRBC% (test code=NRBC%) 0.0 % 0.0-0.2 MANDIFF (test code=MDIFF) NO NO RBC MORPH (test code=RBCMOR) NORMAL [id number] 09:54:00 Test Item Value Reference Range Comments A1C % (test code=HBA) 15.8 % 4.2-6.3 CBC (INCLUDES AUTOMATED DIFFERENTIAL)2016-08-28 09:38:00 Test Item Value Reference Range Comments WBC (test code=WBC) 8.2 10\S\3/uL 4.5-11.0 RBC (test code=RBC) 3.49 10\S\6/uL 4.30-5.70 HGB (test code=HBG) 10.5 g/dL 12.0-15.5 HCT (test code=HCT) 29.4 % 35.0-44.0 MCV (test code=MCV) 84.2 fL 81.0-99.0 MCH (test code=MCH) 30.1 pg 27.0-31.0 MCHC (test code=MCHC) 35.7 g/dL 32.0-36.0 RDW (test code=RDW) 12.5 % 11.5-14.5 PLT (test code=PLT) 118 10\S\3/uL 130-400 MPV (test code=MPV) 11.8 fL 9.4-12.4 NEUTROP # (test code=NE#) 5.5 10\S\3/uL 1.6-8.0 LYMPH # (test code=LY#) 1.7 10\S\3/uL 1.1-3.5 MONOCYTE # (test code=MO#) 0.9 10\S\3/uL 0.0-1.1 EOSINOPH # (test code=EO#) 0.0 10\S\3/uL 0.0-0.7 BASOPHIL # (test code=BA#) 0.0 10\S\3/uL 0.0-0.3 IG # (test code=IG#) 0.06 10\S\3/uL 0.00-0.06 NRBC # (test code=NRBC#) 0.00 10\S\3/uL 0.00-0.01 NEUTROPH % (test code=NE%) 67.1 % 35.0-73.0 LYMPH % (test code=LY%) 20.3 % 20.0-55.0 MONO % (test code=MO%) 11.4 % 2.5-10.0 EOSINOPH % (test code=EO%) 0.1 % 0.0-5.0 BASOPHIL % (test code=BA%) 0.4 % 0.0-2.0 IG % (test code=IG%) 0.7 % 0.0-0.8 NRBC% (test code=NRBC%) 0.0 % 0.0-0.2 MANDIFF (test code=MDIFF) NO NO RBC MORPH (test code=RBCMOR) NORMAL GLUCOMETER GLUCOSE- LAB USE [id number] 09:11:00 Test Item Value Reference Range Comments GLUCOMETER (test code=GMG) 187 mg/dL 70-100 Meter ID: [id number]: [id number] MARTIN GWAN GLUCOMETER GLUCOSE- LAB USE [id number] 08:36:00 Test Item Value Reference Range Comments GLUCOMETER (test code=GMG) 150 mg/dL 70-100 CLEANED METERMeter ID: [id number]: [id number] DANISHA YORK GLUCOMETER GLUCOSE- LAB USE [id number] 08:10:00 Test Item Value Reference Range Comments GLUCOMETER (test code=GMG) 46 mg/dL 70-100 Meter ID: [id number]: [id number] MARTIN GWAN GLUCOMETER GLUCOSE- LAB USE [id number] 07:09:00 Test Item Value Reference Range Comments GLUCOMETER (test code=GMG) 91 mg/dL 70-100 CLEANED METERMeter ID: [id number]: [id number] DANISHA PACHECO PHOSPHORUS (P04)2016-08-28 06:56:00 Test Item Value Reference Range Comments PHOSPHORUS (test code=43D) 0.7 mg/dL 2.7-4.6 COMPREHENSIVE METABOLIC [id number] 06:36:00 Test Item Value Reference Range Comments GLUCOSE (test code=06D) 203 mg/dL 75-100 SODIUM (test code=01A) 136 mmol/L 136-145 POTASSIUM (test code=01B) 3.0 mmol/L 3.6-5.1 CHLORIDE (test code=04A) 98 mmol/L 98-107 CO2 (test code=02A) 25 mmol/L 22-32 ANION GAP (test code=ANG) 16.0 mmol/L BUN (test code=05D) 8 mg/dL 7-18 CREATININE (test code=03E) 0.9 mg/dL 0.4-1.1 BUN/CREA R (test code=BCR) 9 12-20 CALCIUM (test code=09D) 7.6 mg/dL 8.3-9.5 BILI TOTAL (test code=11A) 0.7 mg/dL 0.2-1.0 PROTEIN (test code=07D) 5.4 g/dL 6.4-8.2 ALBUMIN (test code=08D) 2.9 g/dL 3.5-4.8 GLOBULIN (test code=GLB) 2.5 g/dL 1.5-3.8 ALB/GLOB (test code=AGRR) 1.2 1.0-2.6 ALK PHOS (test code=35A) 64 IU/L 42-121 AST (test code=30A) 14 IU/L <=42 ALT (test code=31A) 12 IU/L <=78 GLUCOMETER GLUCOSE- LAB USE [id number] 06:34:00 Test Item Value Reference Range Comments GLUCOMETER (test code=GMG) 125 mg/dL 70-100 Meter ID: [id number]: 5772 KODI [employer] GLUCOMETER GLUCOSE- LAB USE [id number] 05:08:00 Test Item Value Reference Range Comments GLUCOMETER (test code=GMG) 214 mg/dL 70-100 Meter ID: [id number]: [id number] KODI AMODIA GLUCOMETER GLUCOSE- LAB USE [id number] 04:37:00 Test Item Value Reference Range Comments GLUCOMETER (test code=GMG) 266 mg/dL 70-100 CLEANED METERMeter ID: [id number]: 5533 RAJI WARValeria GLUCOMETER GLUCOSE- LAB USE [id number] 03:06:00 Test Item Value Reference Range Comments GLUCOMETER (test code=GMG) 365 mg/dL 70-100 Meter ID: [id number]: [id number] [employer] BASIC METABOLIC [id number] 01:56:00 Test Item Value Reference Range Comments GLUCOSE (test code=06D) 340 mg/dL 75-100 SODIUM (test code=01A) 138 mmol/L 136-145 POTASSIUM (test code=01B) 3.8 mmol/L 3.6-5.1 CHLORIDE (test code=04A) 100 mmol/L 98-107 CO2 (test code=02A) 23 mmol/L 22-32 ANION GAP (test code=ANG) 18.8 mmol/L BUN (test code=05D) 10 mg/dL 7-18 CREATININE (test code=03E) 0.7 mg/dL 0.4-1.1 BUN/CREA R (test code=BCR) 14 12-20 CALCIUM (test code=09D) 7.3 mg/dL 8.3-9.5 BASIC METABOLIC [id number] 22:07:00 Test Item Value Reference Range Comments GLUCOSE (test code=06D) 203 mg/dL 75-100 SODIUM (test code=01A) 138 mmol/L 136-145 POTASSIUM (test code=01B) 3.9 mmol/L 3.6-5.1 CHLORIDE (test code=04A) 99 mmol/L 98-107 CO2 (test code=02A) 27 mmol/L 22-32 ANION GAP (test code=ANG) 15.9 mmol/L BUN (test code=05D) 9 mg/dL 7-18 CREATININE (test code=03E) 0.9 mg/dL 0.4-1.1 BUN/CREA R (test code=BCR) 10 12-20 CALCIUM (test code=09D) 7.6 mg/dL 8.3-9.5 GLUCOMETER GLUCOSE- LAB USE [id number] 20:36:00 Test Item Value Reference Range Comments GLUCOMETER (test code=GMG) 117 mg/dL 70-100 Meter ID: [id number]: 5772 KODI AMODIA GLUCOMETER GLUCOSE- LAB USE [id number] 19:18:00 Test Item Value Reference Range Comments GLUCOMETER (test code=GMG) 98 mg/dL 70-100 CLEANED METERMeter ID: [id number]: 5559 [facility] BASIC METABOLIC [id number] 18:23:00 Test Item Value Reference Range Comments GLUCOSE (test code=06D) 149 mg/dL 75-100 SODIUM (test code=01A) 138 mmol/L 136-145 POTASSIUM (test code=01B) 3.1 mmol/L 3.6-5.1 CHLORIDE (test code=04A) 97 mmol/L 98-107 CO2 (test code=02A) 27 mmol/L 22-32 ANION GAP (test code=ANG) 17.1 mmol/L BUN (test code=05D) 9 mg/dL 7-18 CREATININE (test code=03E) 0.9 mg/dL 0.4-1.1 BUN/CREA R (test code=BCR) 10 12-20 CALCIUM (test code=09D) 8.7 mg/dL 8.3-9.5 GLUCOMETER GLUCOSE- LAB USE [id number] 18:09:00 Test Item Value Reference Range Comments GLUCOMETER (test code=GMG) 136 mg/dL 70-100 CLEANED METERMeter ID: [id number]: 5244 TALAT FATUMA GLUCOMETER GLUCOSE- LAB USE [id number] 17:15:00 Test Item Value Reference Range Comments GLUCOMETER (test code=GMG) 221 mg/dL 70-100 Meter ID: [id number]: 5139 JAJA KEARNS GLUCOMETER GLUCOSE- LAB USE [id number] 16:06:00 Test Item Value Reference Range Comments GLUCOMETER (test code=GMG) 317 mg/dL 70-100 CLEANED METERMeter ID: [id number]: 5559 DANISHA PACHECO GLUCOMETER GLUCOSE- LAB USE [id number] 14:53:00 Test Item Value Reference Range Comments GLUCOMETER (test code=GMG) 455 mg/dL 70-100 CLEANED METERMeter ID: [id number]: 5244 TALAT FATUMA GLUCOMETER GLUCOSE- LAB USE [id number] 14:37:00 Test Item Value Reference Range Comments GLUCOMETER (test code=GMG) 515 mg/dL 70-100 CLEANED METERMeter ID: [id number]: 5531 TERRY FLOWERS COMPREHENSIVE METABOLIC [id number] 13:45:00 Test Item Value Reference Range Comments GLUCOSE (test code=06D) 655 mg/dL 75-100 SODIUM (test code=01A) 126 mmol/L 136-145 POTASSIUM (test code=01B) 2.9 mmol/L 3.6-5.1 CHLORIDE (test code=04A) 74 mmol/L 98-107 CO2 (test code=02A) 18 mmol/L 22-32 ANION GAP (test code=ANG) 36.9 mmol/L BUN (test code=05D) 13 mg/dL 7-18 CREATININE (test code=03E) 1.0 mg/dL 0.4-1.1 BUN/CREA R (test code=BCR) 13 12-20 CALCIUM (test code=09D) 9.1 mg/dL 8.3-9.5 BILI TOTAL (test code=11A) 0.7 mg/dL 0.2-1.0 PROTEIN (test code=07D) 8.0 g/dL 6.4-8.2 ALBUMIN (test code=08D) 4.4 g/dL 3.5-4.8 GLOBULIN (test code=GLB) 3.6 g/dL 1.5-3.8 ALB/GLOB (test code=AGRR) 1.2 1.0-2.6 ALK PHOS (test code=35A) 132 IU/L 42-121 AST (test code=30A) 17 IU/L <=42 ALT (test code=31A) 18 IU/L <=78 XR CHEST 1 VIEW [id number] 13:43:38Portable AP chest, 1 viewLocation Code: [id number] HISTORY: Chest pain, hyperglycemiaCOMPARISON: NoneCOMMENT: The lungs are clear and well inflated. The costophrenic angles are sharp. Thecardiomediastinal silhouette is unremarkable. The bones are intact.IMPRESSION : No acute abnormalityCARDIAC [id number] 13:41:00 Test Item Value Reference Range Comments TROPONIN I (test code=A84) <0.015 ng/mL 0.000-0.045 CKMB (test code=A49) <1.0 ng/mL <=3.6 CPK (test code=32A) 49 IU/L 26-192 AMYLASE AND [id number] 13:40:00 Test Item Value Reference Range Comments AMYLASE (test code=10A) 44 U/L 28-100 LIPASE (test code=60A) 185 IU/L 73-393 Arterial Blood [id number] 13:38:00 Test Item Value Reference Range Comments pH (test code=PHRT) 7.423 7.350-7.450 pCO2 (test code=PCO2RT) 25.2 mmHg 35.0-45.0 pO2 (test code=PO2RT) 131.0 mmHg 80.0-110.0 HCO3? (test code=HCO3) 16.2 mmol/L 22.0-26.0 KAMAR (test code=KAMAR) -6.3 mmol/L -3.0-3.0 tHb (test code=THBRT) 13.7 g/dL 12.0-15.5 sO2 (test code=SO2RT) 98.8 % 92.0-100.0 FO2Hb (test code=ZO0WHKU) 96.7 % 94.0-100.0 FCOHb (test code=FCOHBRT) 1.6 % 0.0-3.0 FMetHb (test code=FMETHBRT) 0.7 % 0.2-0.6 ABGTEMP (test code=ABGTEMP) * Temp Corrected Values* ABGTEMP (test code=ABGTEMP.) 37.0 ?C pH (T) (test code=PHTEMP) 7.423 7.350-7.450 pCO2 (T) (test code=IZX1PWPG) 25.2 mmHg 35.0-45.0 pO2 (T) (test code=DS6SNFZ) 131.0 mmHg 80.0-110.0 Device (test code=DEVICE) ROOM AIR FI02 (test code=FI02) 21.0 % Liter_flow (test code=LF) VENPAR (test code=VENPAR) * Ventilator Parameters * SIMV (test code=SIMV) A/C (test code=A/C) CPAP (test code=CPAP) PEEP (test code=PEEP) PS (test code=PS) PIP (test code=PIP) I_Time (test code=ITIME) Vt (test code=VT) BIPAP INSP (test code=BIPAPINP) BIPAP EXP (test code=BIPAPEXP) Miguel test (test code=ATEST) Positive SAMPLE SITE (test code=SSITE) Right Radial Artery COMMENT (test code=CO) DIRECT INFLUENZA A AND B [id number] 13:33:00 Test Item Value Reference Range Comments Direct Exam (test code=DE1) PRESUMPTIVE NEGATIVE FOR THE PRESENCE OF INFLUENZA ANTIGEN URINALYSIS WITH [id number] 13:31:00 Test Item Value Reference Range Comments COLOR (test code=COLU) YELLOW YELLOW CLARITY (test code=CLA) CLOUDY CLEAR GLUCOSE UR (test code=UA GLUCOSE) 3+ NEGATIVE BILI UR (test code=BILE) NEGATIVE NEGATIVE KETONES UR (test code=GRIS) 4+ NEGATIVE SP GRAVITY (test code=SPGR) 1.021 1.005-1.030 PH UR (test code=PH) 5.5 4.5-8.0 PROTEIN UR (test code=PU) NEGATIVE NEGATIVE UROBIL UR (test code=UROQ) 0.2 EU/dL 0.2-1.0 NITRITE UR (test code=NITRITE) NEGATIVE NEGATIVE BLOOD UR (test code=UA BLOOD) NEGATIVE NEGATIVE LEUK ES UR (test code=LEUK) 2+ NEGATIVE WBC UR (test code=UWBC) 6 /HPF 0-5 RBC UR (test code=URBC) 0 /HPF 0-2 EPITH UR (test code=UEPC) FEW /LPF FEW BACTERIA UR (test code=UBACT) FEW /HPF NONE CAST UR (test code=CAST) /LPF NONE CRYSTAL UR (test code=CRYU) / LPF NONE MUCUS UR (test code=MUC) / HPF NONE AMORPH UR (test code=CAROL) / HPF NONE TRICH UR (test code=UTRICH) /HPF NONE YEAST UR (test code=UY) FEW /HPF NONE SPERM UR (test code=USPERM) /HPF NONE PRO TIME AND [id number] 13:30:00 Test Item Value Reference Range Comments PT (test code=TT) 10.4 s 9.8-13.6 INR (test code=INR) 0.9 INRH (test code=INRH) SUGGESTED THERAPEUTIC RANGE FOR INR: 2.5 - 3.5 For Patients with Prosthetic Valves or Patients with recurrent Thromboembolic Events 2.0 - 3.0 For Most Other Applications PTT (test code=PTT) 30.3 s 20.2-38.0 PTTH (test code=PTTH) To monitor the effectiveness of heparin, we offer the Anti-Xa (Heparin Assay). It can be used for either unfractinated or LMW Heparin. Order Code is ANTI-XA SERUM [id number] 13:28:00 Test Item Value Reference Range Comments PREG SRM (test code=PGS) NEGATIVE NEGATIVE CBC (INCLUDES AUTOMATED DIFFERENTIAL)2016-08-27 13:23:00 Test Item Value Reference Range Comments WBC (test code=WBC) 16.0 10\S\3/uL 4.5-11.0 RBC (test code=RBC) 4.97 10\S\6/uL 4.30-5.70 HGB (test code=HBG) 14.9 g/dL 12.0-15.5 HCT (test code=HCT) 41.2 % 35.0-44.0 MCV (test code=MCV) 82.9 fL 81.0-99.0 MCH (test code=MCH) 30.0 pg 27.0-31.0 MCHC (test code=MCHC) 36.2 g/dL 32.0-36.0 RDW (test code=RDW) 12.7 % 11.5-14.5 PLT (test code=PLT) 172 10\S\3/uL 130-400 MPV (test code=MPV) 12.3 fL 9.4-12.4 NEUTROP # (test code=NE#) 13.5 10\S\3/uL 1.6-8.0 LYMPH # (test code=LY#) 1.4 10\S\3/uL 1.1-3.5 MONOCYTE # (test code=MO#) 0.9 10\S\3/uL 0.0-1.1 EOSINOPH # (test code=EO#) 0.0 10\S\3/uL 0.0-0.7 BASOPHIL # (test code=BA#) 0.1 10\S\3/uL 0.0-0.3 IG # (test code=IG#) 0.14 10\S\3/uL 0.00-0.06 NRBC # (test code=NRBC#) 0.00 10\S\3/uL 0.00-0.01 NEUTROPH % (test code=NE%) 84.3 % 35.0-73.0 LYMPH % (test code=LY%) 8.9 % 20.0-55.0 MONO % (test code=MO%) 5.6 % 2.5-10.0 EOSINOPH % (test code=EO%) 0.0 % 0.0-5.0 BASOPHIL % (test code=BA%) 0.3 % 0.0-2.0 IG % (test code=IG%) 0.9 % 0.0-0.8 NRBC% (test code=NRBC%) 0.0 % 0.0-0.2 MANDIFF (test code=MDIFF) NO NO RBC MORPH (test code=RBCMOR) NORMAL
[2017-09-24 17:57] LABS: Blood Gas Oxyhemoglobin 95.4 % (94-97)
--- NOTE | 2017-09-24 17:58 | RAD REPORT ---
EXAM DESCRIPTION: RAD - Chest Single View - 09/24/2017 5:52 pm CLINICAL HISTORY: Chest pain. COMPARISON: 02/08/2017 FINDINGS: Portable technique limits examination quality. The lungs are grossly clear. The heart is normal in size. No displaced fractures. IMPRESSION: No acute intrathoracic process suspected.
[2017-09-24 18:03] LABS: Absolute Lymphocytes (CBC) 0.3 K/uL (0.7-4.9); Absolute Monocytes 0.6 K/uL (0.1-1.3); Absolute Neutrophil 15.2 K/uL (1.8-8.0); Hematocrit 43.8 % (36.0-45.0); MCH 28.3 pg (27.0-35.0); MPV 9.7 fL (7.6-11.3); Monocytes % 3.8 % (3.3-12.3); RBC Red Blood Cell Count 5.04 M/uL (3.86-4.86)
[2017-09-24 18:09] LABS: Protime INR 0.93
[2017-09-24] MEDS ORDERED: NA CHLORIDE 0.9% 1,000 ML ONE (18:12)
[2017-09-24 18:27] LABS: Blood Morphology Comment NOT SEEN (NOT SEEN); Platelet Estimate ADEQ; Urine White Blood Cell Casts OK
[2017-09-24 18:30] LABS: Potassium 3.7 mEq/L (3.6-5.0)
[2017-09-24 18:32] LABS: Urine Blood TRACE (NEG); Urine Glucose 2+ (NEG); Urine Protein 1+ (NEG); Urine pH 5.5 (5.0-7.0)
[2017-09-24 18:36] LABS: Albumin 4.2 g/dL (3.2-5.5); Bilirubin Direct 0.2 mg/dL (0-0.2); Bilirubin Total 1.4 mg/dL (0.3-1.2); Protein, Total 7.4 g/dL (6.0-8.3)
[2017-09-24] MEDS ORDERED: PIPER/TAZO/NS 3.375gm 3.375 GM/100 ML BAG ONE (18:48)
[2017-09-24] MEDS ORDERED: METRONIDAZOLE 500mg IVPB 500 MG/100 ML BAG IV ONE (18:48)
[2017-09-24] MEDS ORDERED: INSULIN -REGULAR HUMAN 50 UNIT/0.5 ML ML ONE (18:50)
[2017-09-24] MEDS ORDERED: NA CHLORIDE 0.9% 100 ML IV ONE (18:50)
[2017-09-24 19:02] LABS: Phosphorus 5.3 mg/dL (2.5-4.3)
[2017-09-24] MEDS ORDERED: ALPRAZOLAM 0.25 MG TABLET PO PRN (19:33)
[2017-09-24] MEDS ORDERED: ONDANSETRON 4 MG/2 ML VIAL IV PRN (19:33)
[2017-09-24 19:35] LABS: Magnesium 0.8 mg/dL (1.8-2.5)
--- NOTE | 2017-09-24 19:36 | ER ---
Nurse's Notes [facility] Name: Selam Larsen Age: 22 yrs Sex: Female : 1995 Arrival Date: 09/24/2017 Time: 17:02 Bed 16 Private MD: Diagnosis: Type 1 diabetes mellitus with ketoacidosis;Severe sepsis without septic shock Presentation: 09/24 17:05 Presenting complaint: Patient states: i went to Dr. Miller and he told me to come tw2 here, i have been having diarrhea and she doesn't want me to get dehydrated, off and on for a month, but here lately it has gotten worse. Transition of care: patient was not received from another setting of care. Onset of symptoms was September 24, 2017. Care prior to arrival: None. 17:05 Method Of Arrival: Ambulatory tw2 17:05 Acuity: ADRIANA 2 iw 18:26 Initial Sepsis Screen: Does the patient meet any 2 criteria? Systolic BP < 90 mmHg. HR iw > 90 bpm. Yes Does the patient have a suspected source of infection? Yes: If YES to both, name of provider notified: Dutch Christine MD OR MANAGER: 17:06 LMP 09/12/2017 tw2 Historical: - Allergies: 17:09 Ceclor; tw2 - Home Meds: 17:09 Lantus Sub-Q [Active]; Humalog Mix 75-25 100 unit/mL (75-25) Sub-Q susp [Active]; tw2 Simvastatin Oral [Active]; pioglitazone Oral [Active]; - PMHx: 17:09 Diabetes - IDDM; Hyperlipidemia; tw2 - PSHx: 17:09 None; tw2 - Immunization history:: Adult Immunizations up to date. - Social history:: Smoking status: Patient/guardian denies using tobacco. Screenin:29 Abuse screen: Denies threats or abuse. Nutritional screening: pt extremely small, tl3 emaciated. Tuberculosis screening: No symptoms or risk factors identified. Fall Risk None identified. 19:21 Sepsis Screening: . Infection: SIRS - Systemic Inflammatory Response Syndrome: 2 or tl3 more indicates positive screen: [heart rate greater than 90 beats per minute] [respiratory rate is greater than 20 breaths per minute] [WBC greater than or equal to 12,000/mm3 or less than or equal to 4,000/mm3 or greater than 0.5 K/uL bands] [blood glucose greater than 140 ml/dL in non-diabetic patient] Provider has been notified and patient further screened based on infection criteria. Assessment: 17:26 General: Appears comfortable, slender, emaciated, Behavior is calm, cooperative, tl3 appropriate for age. Pain: Complains of pain in buttocks from rash caused by frequent diarrhea. Neuro: Level of Consciousness is awake, alert, obeys commands, Oriented to person, place, time, situation, Appropriate for age. Cardiovascular: Heart tones S1 S2 present. Cardiovascular: Heart tones tachycardic. Respiratory: Airway is patent Trachea midline Respiratory effort is even, unlabored, Respiratory pattern is regular, symmetrical. GI: Bowel sounds present X 4 quads. diminished in right upper quadrant, left upper quadrant, right lower quadrant and left lower quadrant. : No signs and/or symptoms were reported regarding the genitourinary system. EENT: No signs and/or symptoms were reported regarding the EENT system. Derm: Musculoskeletal: No signs and/or symptoms reported regarding the musculoskeletal system. 18:17 Reassessment: pt denies any eating disorders. tl3 19:16 Reassessment: No changes from previously documented assessment. Patient is alert, tl3 oriented x 3, equal unlabored respirations, skin warm/dry/pink. pt in no apparent distress despite her vital signs, resting quietly in bed playing on her phone, sister at bedside. 20:09 Reassessment: Patient appears in no apparent distress at this time. No changes from tl3 previously documented assessment. Patient and/or family updated on plan of care and expected duration. Pain level reassessed. Patient is alert, oriented x 3, equal unlabored respirations, skin warm/dry/pink. pt in no acute distress. Vital Signs: 17:06 BP 87 / 64; Pulse 173; Resp 17; Temp 100.2(A); Pulse Ox 99% on R/A; Weight 30.84 kg tw2 (R); Height 4 ft. 2 in. (127.00 cm); Pain 0/10; 18:07 BP 94 / 59; Pulse 154; Resp 22; Pulse Ox 98% ; tl3 18:15 BP 88 / 57; Pulse 155; Resp 20; Pulse Ox 98% on R/A; tl3 18:19 BP 88 / 57; Pulse 152; Resp 20; Pulse Ox 98% on R/A; tl3 18:19 Temp 99(O); tl3 18:30 BP 93 / 56; Pulse 147; Resp 22; Pulse Ox 100% ; tl3 18:45 BP 88 / 51; Pulse 152; Resp 20; Pulse Ox 100% on R/A; tl3 19:00 BP 93 / 51; Pulse 149; Resp 22; Pulse Ox 100% on R/A; tl3 19:30 BP 94 / 58; Pulse 141; Resp 20; Pulse Ox 100% ; tl3 19:45 BP 89 / 56; Pulse 150; Resp 22; Pulse Ox 100% ; tl3 20:00 BP 91 / 57; Pulse 155; Resp 20; Pulse Ox 100% ; tl3 17:06 Body Mass Index 19.12 (30.84 kg, 127.00 cm) tw2 ED Course: 17:02 Patient arrived in ED. tw3 17:06 Triage completed. tw2 17:09 Arm band placed on. tw2 17:11 Dutch Christine MD is Attending Physician. gs 17:15 Yodit Lainez, BRYCE is Primary Nurse. tl3 17:29 Patient has correct armband on for positive identification. Bed in low position. Call tl3 light in reach. Side rails up X 1. Adult w/ patient. awake overnight monitor on. Pulse ox on. NIBP on. 17:29 No provider procedures requiring assistance completed. tl3 17:50 X-ray completed. Portable x-ray completed in exam room. Patient tolerated procedure bb2 well. 17:51 Chest Single View XRAY In Process Unspecified. EDMS 17:53 Initial lab(s) drawn, by me, sent to lab. Inserted saline lock: 22 gauge in right tl3 forearm, using aseptic technique. Blood collected. 19:34 Christina Badillo MD is Hospitalizing Provider. 09/25 01:37 Repeat lab(s) drawn. by me, sent to lab. Repeat, chem, acetone, mag,phos. bs1 06:39 Patient admitted, IV remains in place. bs1 Administered Medications: 09/24 18:16 Drug: NS 0.9% (30 ml/kg) 30 ml/kg Route: IV; Rate: bolus; Site: right forearm; tl3 Delivery: Primary tubing; 20:08 Follow up: IV Status: Completed infusion; IV Intake: 900ml tl3 19:06 Drug: Flagyl 500 mg Volume: 100 ml; Route: IVPB; Rate: 200 ml/hr; Infused Over: 30 tl3 mins; Site: left forearm; Delivery: Primary tubing; 20:07 Follow up: IV Status: Completed infusion; IV Intake: 100ml tl3 19:07 Drug: Insulin Drip - (Insulin Regular Human 100 units, NS 0.9% 100 ml) {Co-Signature: tl3 rk2 (Ashley Mares RN).} {Note: started at 3Units per hour.} Route: IV; Rate: calculated rate; Site: right forearm; Delivery: Primary tubing; 22:19 Follow up: Response: Blood sugar is lowered; IV Status: Infusion continued upon tl3 admission 20:07 Drug: Magnesium Sulfate 2 grams Route: IVPB; Infused Over: 2 hrs; Site: left forearm; tl3 Delivery: Primary tubing; 22:17 Follow up: IV Status: Completed infusion; IV Intake: 40ml tl3 21:45 Drug: Zosyn 3.375 grams Route: IVPB; Infused Over: 60 mins; Site: left forearm; tl3 Delivery: Primary tubing; 22:18 Follow up: IV Status: Completed infusion; IV Intake: 100ml tl3 Point of Care Testing: Blood Glucose: 17:29 Blood Glucose: High (>450 mg/dL); tl3 20:07 Blood Glucose: 362 mg/dL; vd2 09/25 01:27 Blood Glucose: 252 mg/dL; bs1 Ranges: Intake: 09/24 20:07 IV: 100ml; Total: 100ml. tl3 20:08 IV: 900ml; Total: 1000ml. tl3 22:17 IV: 40ml; Total: 1040ml. tl3 22:18 IV: 100ml; Total: 1140ml. tl3 Outcome: 19:35 Decision to Hospitalize by Provider. 09/25 06:38 Admitted to ER Hold. Please see [facility] for further documentation. bs1 Condition: stable Instructed on the need for admit. 10:47 Admitted to Tele accompanied by tech, family with patient, via stretcher, room 430, jl7 with chart, Report called to Nurse Rosina 10:47 Condition: stable 10:47 Discharge instructions given to patient, Instructed on the need for admit, Demonstrated understanding of instructions. 10:48 Patient left the ED. jl7 Signatures: Dispatcher [employer] EDMS Elayne Harris, RN RN iw LorenzoLouise cruz vd2 Erika Bsutamante RN RN tw2 Joan Lopez, RN RN jl7 Evans, Laurel tw3 Dutch Christine MD MD Karen Montano bb2 Karen Samson, RN RN bs1 Yodit Lainez RN RN tl3 Ashley Mares RN rk2 Corrections: (The following items were deleted from the chart) 09/24 18:11 17:05 Acuity: ADRIANA 3 tw2 18:26 17:05 Initial Sepsis Screen: Does the patient meet any 2 criteria? No. Patient's initial sepsis screen is negative. Does the patient have a suspected source of infection? No. Patient's initial sepsis screen is negative. tw2
--- NOTE | 2017-09-24 19:36 | EDPHYS ---
Physician Documentation [facility] Name: Selam Larsen Age: 22 yrs Sex: Female : 1995 Arrival Date: 09/24/2017 Time: 17:02 Bed 16 Private MD: ED Physician Dutch Christine HPI: 09/24 19:28 This 22 yrs old Female presents to ER via Ambulatory with complaints of gs diarrhea. 19:28 The patient presents to the emergency department with diarrhea. Onset: The gs symptoms/episode began/occurred 4 month(s) ago, and became worse. Possible causes: unknown. Associated signs and symptoms: Pertinent positives: dysuria, fever, blood sugar out of control. Severity of symptoms: At their worst the symptoms were severe in the emergency department the symptoms are unchanged. The patient has experienced similar episodes in the past, a few times. The patient has been recently seen by a physician: in the hospital, last week. 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 - Social history:: Smoking status: Patient/guardian denies using tobacco. ROS: 19:28 All other systems are negative. gs Exam: 19:28 Head/Face: Normocephalic, atraumatic. Eyes: Pupils equal round and reactive to light, gs extra-ocular motions intact. Lids and lashes normal. Conjunctiva and sclera are non-icteric and not injected. Cornea within normal limits. Periorbital areas with no swelling, redness, or edema. ENT: Nares patent. No nasal discharge, no septal abnormalities noted. Tympanic membranes are normal and external auditory canals are clear. Oropharynx with no redness, swelling, or masses, exudates, or evidence of obstruction, uvula midline. Mucous membranes moist. Neck: Trachea midline, no thyromegaly or masses palpated, and no cervical lymphadenopathy. Supple, full range of motion without nuchal rigidity, or vertebral point tenderness. No Meningismus. Chest/axilla: Normal chest wall appearance and motion. Nontender with no deformity. No lesions are appreciated. 19:28 Back: No spinal tenderness. No costovertebral tenderness. Full range of motion. Skin: Warm, dry with normal turgor. Normal color with no rashes, no lesions, and no evidence of cellulitis. MS/ Extremity: Pulses equal, no cyanosis. Neurovascular intact. Full, normal range of motion. Neuro: Awake and alert, GCS 15, oriented to person, place, time, and situation. Cranial nerves II-XII grossly intact. Motor strength 5/5 in all extremities. Sensory grossly intact. Cerebellar exam normal. Normal gait. 19:28 Constitutional: The patient appears alert, awake, in obvious distress, severely distressed. 19:28 Constitutional: The patient appears pale. 19:28 Cardiovascular: Rate: tachycardic, Rhythm: regular, Pulses: no pulse deficits are appreciated. 19:28 ECG was reviewed by the Attending Physician. 19:28 Respiratory: the patient does not display signs of respiratory distress, Respirations: tachypnea, Breath sounds: are clear throughout. 19:28 Abdomen/GI: Palpation: abdomen is soft and non-tender. Vital Signs: 17:06 BP 87 / 64; Pulse 173; Resp 17; Temp 100.2(A); Pulse Ox 99% on R/A; Weight 30.84 kg tw2 (R); Height 4 ft. 2 in. (127.00 cm); Pain 0/10; 18:07 BP 94 / 59; Pulse 154; Resp 22; Pulse Ox 98% ; tl3 18:15 BP 88 / 57; Pulse 155; Resp 20; Pulse Ox 98% on R/A; tl3 18:19 BP 88 / 57; Pulse 152; Resp 20; Pulse Ox 98% on R/A; tl3 18:19 Temp 99(O); tl3 18:30 BP 93 / 56; Pulse 147; Resp 22; Pulse Ox 100% ; tl3 18:45 BP 88 / 51; Pulse 152; Resp 20; Pulse Ox 100% on R/A; tl3 19:00 BP 93 / 51; Pulse 149; Resp 22; Pulse Ox 100% on R/A; tl3 19:30 BP 94 / 58; Pulse 141; Resp 20; Pulse Ox 100% ; tl3 19:45 BP 89 / 56; Pulse 150; Resp 22; Pulse Ox 100% ; tl3 20:00 BP 91 / 57; Pulse 155; Resp 20; Pulse Ox 100% ; tl3 17:06 Body Mass Index 19.12 (30.84 kg, 127.00 cm) tw2 MDM: 17:23 Patient medically screened. 19:28 Differential diagnosis: pancreatitis, gastroenteritis, sepsis, dka. Data reviewed: vital signs, nurses notes. Response to treatment: the patient's symptoms have markedly improved after treatment, and as a result, I will admit patient. 09/24 17:17 Order name: Basic Metabolic Panel; Complete Time: 18:50 09/24 17:17 Order name: Blood Culture Adult (2) 09/24 17:17 Order name: CBC with Diff; Complete Time: 18:36 09/24 17:17 Order name: Lactate; Complete Time: 18:36 09/24 17:17 Order name: LFT's; Complete Time: 18:50 09/24 17:17 Order name: Lipase; Complete Time: 18:50 09/24 17:17 Order name: Procalcitonin; Complete Time: 18:50 09/24 17:17 Order name: Protime (+inr); Complete Time: 18:36 09/24 17:17 Order name: Troponin (emerg Dept Use Only); Complete Time: 18:36 09/24 17:17 Order name: ABG; Complete Time: 18:09 09/24 17:18 Order name: Occult Blood 09/24 17:18 Order name: Stool Culture 09/24 17:18 Order name: CDIFF 09/24 17:27 Order name: Glucose, Ancillary Testing; Complete Time: 18:09 EDMS 09/24 18:19 Order name: Urine Dipstick--Ancillary (enter results); Complete Time: 18:36 mw2 09/24 18:19 Order name: Urine --Ancillary (enter results); Complete Time: 18:36 mw2 09/24 18:27 Order name: CBC Smear Scan; Complete Time: 18:36 EDMS 09/24 18:39 Order name: Magnesium; Complete Time: 19:36 gs 09/24 18:39 Order name: Phosphorus; Complete Time: 19:36 gs 09/24 19:37 Order name: Acetone Level EDMS 09/24 19:38 Order name: Hemoglobin A1C EDMS 09/24 19:38 Order name: T4 Free EDMS 09/24 19:38 Order name: Thyroid Stimulating Hormone EDMS 09/24 19:38 Order name: Urinalysis EDMS 09/24 19:38 Order name: Acetone Level EDMS 09/24 19:38 Order name: Acetone Level EDMS 09/24 19:38 Order name: Acetone Level EDMS 09/24 19:38 Order name: Basic Metabolic Panel EDMS 09/24 19:38 Order name: Basic Metabolic Panel EDMS 09/24 19:38 Order name: Basic Metabolic Panel EDMS 09/24 19:38 Order name: Basic Metabolic Panel EDMS 09/24 19:38 Order name: Magnesium EDMS 09/24 19:38 Order name: Magnesium EDMS 09/24 19:38 Order name: Magnesium EDMS 09/24 19:38 Order name: Magnesium EDMS 09/24 19:38 Order name: Phosphorus EDMS 09/24 19:38 Order name: Phosphorus EDMS 09/24 19:38 Order name: Phosphorus EDMS 09/24 19:38 Order name: Phosphorus EDMS 09/24 21:56 Order name: Lactate Sepsis 2 HR Follow-up EDMS 09/24 22:42 Order name: Phosphorus EDMS 09/24 22:42 Order name: Magnesium EDMS 09/25 02:15 Order name: Basic Metabolic Panel EDMS 09/25 02:15 Order name: Phosphorus EDMS 09/25 02:15 Order name: Magnesium EDMS 09/25 06:09 Order name: Glucose, Ancillary Testing EDMS 09/25 06:09 Order name: Glucose, Ancillary Testing EDMS 09/25 06:09 Order name: Glucose, Ancillary Testing EDMS 09/25 06:09 Order name: Glucose, Ancillary Testing EDMS 09/25 06:09 Order name: Glucose, Ancillary Testing EDMS 09/25 06:09 Order name: Glucose, Ancillary Testing EDMS 09/25 06:09 Order name: Glucose, Ancillary Testing EDMS 09/25 06:49 Order name: Phosphorus EDMS 09/25 06:49 Order name: Magnesium EDMS 09/25 07:05 Order name: Magnesium rg2 09/25 07:05 Order name: Phosphorus rg2 09/25 07:05 Order name: Acetone, Serum [facility] 09/25 07:05 Order name: Basic Metabolic Panel [facility] 09/25 08:03 Order name: Basic Metabolic Panel [facility] 09/25 08:03 Order name: Phosphorus [facility] 09/25 08:03 Order name: Magnesium [facility] 09/25 08:05 Order name: Acetone Level [facility] 09/24 17:17 Order name: Chest Single View XRAY; Complete Time: 18:09 09/24 17:17 Order name: Accucheck; Complete Time: 18:16 gs 09/24 17:17 Order name: Cardiac monitoring; Complete Time: 18:16 09/24 17:17 Order name: EKG - Nurse/Tech; Complete Time: 22:36 09/24 17:17 Order name: IV Saline Lock - Large Bore; Complete Time: 18:16 gs 09/24 17:17 Order name: Labs collected and sent; Complete Time: 18:16 09/24 17:17 Order name: O2 Per Protocol; Complete Time: 18:17 09/24 17:17 Order name: O2 Sat Monitoring; Complete Time: 18:17 09/24 17:17 Order name: Urine Dipstick-Ancillary (obtain specimen); Complete Time: 18:17 09/24 19:38 Order name: CONS Pharmacy Consult [facility] 09/24 19:38 Order name: NPO [facility] 09/25 08:06 Order name: Glucose, Ancillary Testing [facility] 09/25 08:06 Order name: Glucose, Ancillary Testing EDWI EC:28 Rate is 151 beats/min. Rhythm is regular, Sinus tachycardia. IA interval is normal. QRS gs interval is normal. QT interval is prolonged. T waves are Flattened. Clinical impression: NSR w/ Non-specific ST/T Changes. Interpreted by me. Administered Medications: 18:16 Drug: NS 0.9% (30 ml/kg) 30 ml/kg Route: IV; Rate: bolus; Site: right forearm; tl3 Delivery: Primary tubing; 20:08 Follow up: IV Status: Completed infusion; IV Intake: 900ml tl3 19:06 Drug: Flagyl 500 mg Volume: 100 ml; Route: IVPB; Rate: 200 ml/hr; Infused Over: 30 tl3 mins; Site: left forearm; Delivery: Primary tubing; 20:07 Follow up: IV Status: Completed infusion; IV Intake: 100ml tl3 19:07 Drug: Insulin Drip - (Insulin Regular Human 100 units, NS 0.9% 100 ml) {Co-Signature: tl3 rk2 (Ashley Mares RN).} {Note: started at 3Units per hour.} Route: IV; Rate: calculated rate; Site: right forearm; Delivery: Primary tubing; 22:19 Follow up: Response: Blood sugar is lowered; IV Status: Infusion continued upon tl3 admission 20:07 Drug: Magnesium Sulfate 2 grams Route: IVPB; Infused Over: 2 hrs; Site: left forearm; tl3 Delivery: Primary tubing; 22:17 Follow up: IV Status: Completed infusion; IV Intake: 40ml tl3 21:45 Drug: Zosyn 3.375 grams Route: IVPB; Infused Over: 60 mins; Site: left forearm; tl3 Delivery: Primary tubing; 22:18 Follow up: IV Status: Completed infusion; IV Intake: 100ml tl3 Point of Care Testing: Blood Glucose: 17:29 Blood Glucose: High (>450 mg/dL); tl3 20:07 Blood Glucose: 362 mg/dL; vd2 04 01:27 Blood Glucose: 252 mg/dL; bs1 Ranges: Critical Glucose Levels:Adult <50 mg/dl or >400 mg/dl <40 mg/dl or >180 mg/dl Disposition: 09/24/17 19:35 Hospitalization ordered by Christina Badillo for Inpatient Admission. Preliminary diagnosis are Type 1 diabetes mellitus with ketoacidosis, Severe sepsis without septic shock. - Bed requested for Telemetry/MedSurg (Inpatient). - Status is Inpatient Admission. jl7 - Condition is Stable. - Problem is new. - Symptoms have improved. UTI on Admission? No Critical care time excluding procedures: 09/24 19:28 Critical care time: Bedside Care: 10 minutes, Consultation: 10 minutes, Family Intervention: 10 minutes. Total time: 30 minutes Signatures: Dispatcher [employer] Natalio Hayden rg2 Erika Bustamante RN RN tw2 Joan Lopez RN RN jl7 Dutch Christine MD MD gs Lowrey, Tammy, RN RN tl3 Alvarado Velasco 2 Ashley Mares RN rk2
[2017-09-24] MEDS ORDERED: NA CHLORIDE 0.9% 1,000 ML IV SCH (20:00)
[2017-09-24] MEDS ORDERED: Magnesium Sulfate 2gm IVPB 2 G/50 ML BAG IV ONE (20:02)
[2017-09-24] MEDS ORDERED: NA CHLORIDE 0.9% 500 ML ONE (20:22)
[2017-09-24 21:50] LABS: BUN Blood Urea Nitrogen 21 mg/dL (6-20); Bicarbonate 19 mEq/L (21-31); Glucose Level 227 mg/dL (65-120); Sodium Level 137 mEq/L (135-145)
[2017-09-24 21:54] LABS: Potassium 2.7 mEq/L (3.6-5.0)
[2017-09-24 22:26] LABS: Magnesium 2.1 mg/dL (1.8-2.5); Phosphorus 2.1 mg/dL (2.5-4.3)
[2017-09-24 22:29] LABS: Thyroid Stimulating Hormone 0.43 uIU/mL (0.34-5.60)
[2017-09-24] MEDS ORDERED: D5 NS IV ONE (23:10)
[2017-09-24] MEDS ORDERED: KCL 20 MEQ/100 mL IVPB 20 MEQ/100 ML BAG IV ONE (23:10)
[2017-09-24] MEDS ORDERED: D50W 25 GM/50 ML SYRINGE IV PRN (23:12)
[2017-09-24] MEDS ORDERED: GLUCAGON 1 MG/VIAL IM PRN (23:12)
[2017-09-24] MEDS ORDERED: INSULIN -REGULAR HUMAN 50 UNIT/0.5 ML ML IV SCH (23:15)
[2017-09-24] MEDS ORDERED: D5 0.9 NS 1,000 ML IV SCH (23:20)
[2017-09-24] MEDS: KCL 20 MEQ/100 mL IVPB 20 MEQ/100 ML BAG IV SCH (23:32)
[2017-09-25 00:21] VITALS: BMI 19.1
[2017-09-25] MEDS ORDERED: Magnesium Sulfate 2gm IVPB 2 G/50 ML BAG IV ONE ×3 (02:32→03:30)
[2017-09-25] MEDS ORDERED: POTASSIUM PHOS 30 MM in NA CHLORIDE 0.9% 500 ML IV ONE (02:37)
[2017-09-25] MEDS ORDERED: POTASSIUM PHOS IN 0.9 % NACL 30 MMOL/500 ML BAG IV ONE (02:38)
[2017-09-25] MEDS ORDERED: KCL 20 MEQ/100 mL IVPB 20 MEQ/100 ML BAG IV ONE ×2 (03:16→07:09)
[2017-09-25] MEDS: KCL 20 MEQ/100 mL IVPB 20 MEQ/100 ML BAG IV SCH ×3 (03:23→07:13)
[2017-09-25 06:13] LABS: Magnesium 3.1 mg/dL (1.8-2.5); Phosphorus 5.1 mg/dL (2.5-4.3)
--- NOTE | 2017-09-25 06:25 | P.HP ---
Certification for Inpatient Patient admitted to: Inpatient With expected LOS: >2 Midnights Patient will require the following post-hospital care: None Practitioner: I am a practitioner with admitting privileges, knowledge of patient current condition, hospital course, and medical plan of care. Services: Services provided to patient in accordance with Admission requirements found in Title 42 Section 412.3 of the Code of Federal Regulations Patient History Date of Service: 09/24/17 Reason for admission: Diabetic ketoacidosis History of Present Illness: Patient is a 22-year-old female who has a history of hospitalizations for diabetic ketoacidosis. Patient does not take her insulin to way she is supposed to. She becomes hyperglycemic and she goes into diabetic ketoacidosis. Patient with a doctor me as office for follow-up. She recently had an EGD and a colonoscopy. She was following up for results and she was there because of complaints of diarrhea. Patient was brought into the hospital for evaluation when she was found to be in diabetic ketoacidosis. Patient be admitted to the hospital for IV hydration and insulin drip. Will also give aggressive hydration. Patient be admitted to the hospital for further workup. Allergies cefaclor [From Ceclor] Allergy (Verified 02/08/17 13:08) UNK Home Medications: Simvastatin 20 mg PO DAILY 02/08/17 Digoxin [Lanoxin*] 0.125 mg PO DAILY 09/24/17 Insulin Glargine,Hum.rec.anlog [Lantus Solostar] 50 units SQ BID 09/24/17 Insulin Lispro [Humalog] 10 units SQ TIDWM 09/24/17 Mirtazapine [Mirtazapine] 30 mg PO DAILY 09/24/17 Sertraline HCl [Sertraline HCl] 50 mg PO BEDTIME 09/24/17 - Past Medical/Surgical History Diabetic: Yes -: Diabetes mellitus type 1 diagnosed at age 15 -: Hyperlipidemia Past Surgical History: Patient denies surgical history - Family History Father Medical History: Diabetes - Social History Smoking Status: Never smoker Alcohol use: No CD- Drugs: No Caffeine use: No Place of Residence: Home Review of Systems 10-point ROS is otherwise unremarkable Physical Examination - Vital Signs Temperature: 97.7 F Blood Pressure: 94/52 Pulse: 125 Respirations: 16 Pulse Ox (%): 94 - Physical Exam General: Alert, In no apparent distress, Oriented x3, Cachectic, Disheveled HEENT: Atraumatic, PERRLA, Mucous membr. moist/pink, EOMI, Sclerae nonicteric Neck: Supple, 2+ carotid pulse no bruit, No LAD, Without JVD or thyroid abnormality Respiratory: Clear to auscultation bilaterally, Normal air movement Cardiovascular: Regular rate/rhythm, Normal S1 S2, No murmurs Gastrointestinal: Normal bowel sounds, Soft and benign, Non-distended, No tenderness Musculoskeletal: No clubbing, No swelling, No tenderness Integumentary: No rashes Neurological: Normal gait, Normal speech, Normal strength at 5/5 x4 extr, Normal tone, Sensation intact, Cranial nerves 3-12 intact, Normal affect Lymphatics: No axilla or inguinal lymphadenopathy - Studies Laboratory Data (last 24 hrs) 09/24/17 17:35: Phosphorus 5.3 H, Magnesium 0.8 L* D 09/24/17 17:35: PT 11.0, INR 0.93 09/24/17 17:35: WBC 16.2 H, Hgb 14.3, Hct 43.8, Plt Count 277 09/24/17 17:35: Sodium 130 L, Potassium 3.7, BUN 27 H, Creatinine 1.03 H, Glucose 676 H*, Total Bilirubin 1.4 H, AST 97 H, ALT 119 H, Alkaline Phosphatase 169 H, Lipase 27 Assessment & Plan - Problems (Diagnosis) (1) Severe malnutrition Current Visit: Yes Status: Acute (2) DKA (diabetic ketoacidoses) Onset Date: 02/11/17 Current Visit: No Status: Acute Qualifiers: (3) Hypokalemia Onset Date: 02/11/17 Current Visit: No Status: Acute (4) Hypomagnesemia Onset Date: 02/11/17 Current Visit: No Status: Acute (5) Diabetes mellitus type 1 Onset Date: 02/11/17 Current Visit: No Status: Chronic Qualifiers: (6) Hyperlipidemia Onset Date: 02/11/17 Current Visit: No Status: Chronic Qualifiers: - Plan Plan: 1. Aggressive IV hydration 2. IV insulin drip 3. Replace electrolytes 4. Start diet and long-acting insulin and then we can Dc insulin drip within an hr 5. Patient is severely malnourished and will need nutritional supplementation at discharge 6. Aggressive hydration 4 sinus tachycardia 7. GI and DVT prophylaxis Discharge Plan: Home Plan to discharge in: 48 Hours - Advance Directives Does patient have a Living Will: No Does patient have a Durable POA for Healthcare: No - Code Status/Comfort Care Code Status Assessed: Yes Code Status: Full Code Critical Care: No Time Spent Managing PTS Care (In Minutes): 50
[2017-09-25] MEDS ORDERED: D5W 1,000 ML IV ONE (07:08)
[2017-09-25] MEDS: D5 0.9 NS 1,000 ML IV SCH ×2 (07:13)
[2017-09-25 07:54] LABS: Bicarbonate 21 mEq/L (21-31); Glucose Level 209 mg/dL (65-120); Potassium 4.4 mEq/L (3.6-5.0); Sodium Level 137 mEq/L (135-145)
[2017-09-25 07:56] LABS: BUN Blood Urea Nitrogen 11 mg/dL (6-20); Magnesium 2.3 mg/dL (1.8-2.5); Phosphorus 5.3 mg/dL (2.5-4.3)
[2017-09-25] MEDS ORDERED: D50W 25 GM/50 ML SYRINGE IV PRN (07:56)
[2017-09-25] MEDS ORDERED: GLUCAGON 1 MG/VIAL IM PRN (07:56)
[2017-09-25] MEDS: INSULIN DETEMIR 100 UNIT/1 ML INSULIN SQ SCH ×2 (08:00→17:00)
[2017-09-25] MEDS ORDERED: INSULIN DETEMIR 100 UNIT/1 ML INSULIN SQ ONE (08:19)
[2017-09-25] MEDS ORDERED: CEFTRIAXONE 1 GM/NS 50 ML 1 GM/50 ML BAG IV SCH (09:00)
[2017-09-25] MEDS: ENOXAPARIN 40 MG/0.4 ML SQ SCH (09:00)
[2017-09-25] MEDS ORDERED: NA CHLORIDE 0.9% 1,000 ML IV SCH (09:00)
[2017-09-25] MEDS: DIGOXIN 0.125 MG TABLET PO SCH (09:00)
[2017-09-25] MEDS ORDERED: NA CHLORIDE 0.9% 1,000 ML ONE (09:07)
[2017-09-25] MEDS ORDERED: ENOXAPARIN 40 MG/0.4 ML SQ ONE (09:10)
--- NOTE | 2017-09-25 09:15 | EKG ---
Test Date: 2017-09-24 Test Time: 18:59:42 Heel Room Supervisor: JOSÉ MEASUREMENT RESULTS: Intervals: Rate: 151 WA: 104 QRSD: 66 QT: 336 QTc: 532 [place]: P: 58 WA: 104 QRS: 89 T: 63 INTERPRETIVE STATEMENTS: Sinus tachycardia with short WA Nonspecific T wave abnormality Abnormal ECG Compared to ECG 02/08/2017 12:50:47 Short WA interval now present T-wave abnormality now present Atrial abnormality no longer present Electronically Signed On 09-25-17 09:14:52 CDT by Paramjit Quintana
[2017-09-25] MEDS: NA CHLORIDE 0.9% 1,000 ML IV SCH ×2 (09:21→22:47)
[2017-09-25 14:22] LABS: A1c Component 1.62 mg/dL; Hemoglobin A1c 12.9 % (4-6.0)
[2017-09-25] MEDS ORDERED: LOPERAMIDE HCL 2 MG CAPSULE PO STA (15:10)
--- NOTE | 2017-09-25 15:27 | P.PN ---
Subjective Date of Service: 09/25/17 Chief Complaint: Diabetic ketoacidosis she feels better, but still diarrhea. No fever, no nausea or vomiting. Physical Examination - Vital Signs Temperature: 98.8 F Blood Pressure: 97/65 Pulse: 122 Respirations: 18 Pulse Ox (%): 100 - Physical Exam General: Alert, In no apparent distress HEENT: Atraumatic, PERRLA, EOMI Neck: Supple, JVD not distended Respiratory: Clear to auscultation bilaterally, Normal air movement Cardiovascular: Regular rate/rhythm, Normal S1 S2 Gastrointestinal: Normal bowel sounds, No tenderness Musculoskeletal: No tenderness Integumentary: Rash(es) (dipper area) Neurological: Normal speech, Normal tone, Normal affect - Studies Laboratory Data (last 24 hrs) 09/24/17 17:35: Phosphorus 5.3 H, Magnesium 0.8 L* D 09/24/17 17:35: PT 11.0, INR 0.93 09/24/17 17:35: WBC 16.2 H, Hgb 14.3, Hct 43.8, Plt Count 277 09/24/17 17:35: Sodium 130 L, Potassium 3.7, BUN 27 H, Creatinine 1.03 H, Glucose 676 H*, Total Bilirubin 1.4 H, AST 97 H, ALT 119 H, Alkaline Phosphatase 169 H, Lipase 27 Medications List Reviewed: Yes Assessment And Plan - Current Problems (Diagnosis) (1) Chronic diarrhea Current Visit: Yes Status: Acute (2) DKA (diabetic ketoacidoses) Onset Date: 02/11/17 Current Visit: No Status: Acute Qualifiers: Diabetes mellitus type: type 1 Diabetes mellitus complication detail: without coma Qualified Code(s): E10.10 - Type 1 diabetes mellitus with ketoacidosis without coma (3) Diabetes mellitus type 1 Onset Date: 02/11/17 Current Visit: No Status: Chronic Qualifiers: Diabetes mellitus complication status: with ketoacidosis Diabetes mellitus complication detail: without coma Qualified Code(s): E10.10 - Type 1 diabetes mellitus with ketoacidosis without coma - Plan #1 DKA: resolved. #2 DM I: we have resumed long acting insulin. Hgb A1c is 12.9, is still high but better than previous recorded. Continue Levemir insulin 20 UNITS BID, and SSI. #3 chronic diarrhea: C.Diff negative. Will start loperamide. Will discharge her home tomorrow, hopefully diarrhea better controlled. - Code Status/Comfort Care Code Status Assessed: Yes Code Status: Full Code
[2017-09-25 16:21] LABS: BUN Blood Urea Nitrogen 12 mg/dL (6-20); Bicarbonate 22 mEq/L (21-31); Glucose Level 189 mg/dL (65-120); Potassium 4.9 mEq/L (3.6-5.0); Sodium Level 137 mEq/L (135-145)
[2017-09-25] MEDS: LOPERAMIDE HCL 2 MG CAPSULE PO PRN ×2 (17:56→22:45)
[2017-09-25] MEDS: ATORVASTATIN 10 MG TAB PO SCH (22:45)
[2017-09-25] MEDS: MIRTAZAPINE 15 MG TAB PO SCH (22:45)
[2017-09-25] MEDS: SERTRALINE HCL 50 MG TAB PO SCH (22:45)
[2017-09-25] MEDS ORDERED: POTASSIUM CL SA 10 MEQ TAB PO ONE (22:45)
[2017-09-26 04:43] LABS: Absolute Lymphocytes (CBC) 1.7 K/uL (0.7-4.9); Absolute Monocytes 0.8 K/uL (0.1-1.3); Absolute Neutrophil 3.7 K/uL (1.8-8.0); Basophils % 0.3 % (0-1.3); Eosinophils % 2.3 % (0-4.4); Hematocrit 33.8 % (36.0-45.0); Lymphocytes % 27.4 % (15.3-44.8); MCH 28.2 pg (27.0-35.0); MCV 85.1 fL (80-100); MPV 8.9 fL (7.6-11.3); Monocytes % 12.1 % (3.3-12.3); RBC Red Blood Cell Count 3.97 M/uL (3.86-4.86)
[2017-09-26 04:56] LABS: BUN Blood Urea Nitrogen 5 mg/dL (6-20); Glucose Level 144 mg/dL (65-120)
[2017-09-26] MEDS: NA CHLORIDE 0.9% 1,000 ML IV SCH ×4 (05:21→18:51)
[2017-09-26 05:23] LABS: Bicarbonate 21 mEq/L (21-31); Sodium Level 141 mEq/L (135-145)
[2017-09-26 05:25] LABS: Potassium 2.9 mEq/L (3.6-5.0)
[2017-09-26] MEDS: KCL 20 MEQ/100 mL IVPB 20 MEQ/100 ML BAG IV SCH ×3 (05:47→13:12)
[2017-09-26] MEDS: DIGOXIN 0.125 MG TABLET PO SCH (08:56)
[2017-09-26] MEDS: ENOXAPARIN 40 MG/0.4 ML SQ SCH (08:58)
[2017-09-26] MEDS: INSULIN DETEMIR 100 UNIT/1 ML INSULIN SQ SCH (08:58)
--- NOTE | 2017-09-26 12:28 | P.PN ---
Subjective Date of Service: 09/26/17 Chief Complaint: Diabetic ketoacidosis The patient states that her diarrhea is slowing down, no fever, no abdominal pain. Physical Examination - Vital Signs Temperature: 97.7 F Blood Pressure: 97/53 Pulse: 107 Respirations: 18 Pulse Ox (%): 100 - Physical Exam General: Alert, In no apparent distress Respiratory: Clear to auscultation bilaterally, Normal air movement Cardiovascular: Regular rate/rhythm, Normal S1 S2 Gastrointestinal: Normal bowel sounds, No tenderness Musculoskeletal: No tenderness Integumentary: No rashes Neurological: Normal speech, Normal tone, Normal affect - Studies Medications List Reviewed: Yes Assessment And Plan - Current Problems (Diagnosis) (1) Chronic diarrhea Current Visit: Yes Status: Acute (2) DKA (diabetic ketoacidoses) Onset Date: 02/11/17 Current Visit: No Status: Acute Qualifiers: Diabetes mellitus type: type 1 Diabetes mellitus complication detail: without coma Qualified Code(s): E10.10 - Type 1 diabetes mellitus with ketoacidosis without coma (3) Diabetes mellitus type 1 Onset Date: 02/11/17 Current Visit: No Status: Chronic Qualifiers: Diabetes mellitus complication status: with ketoacidosis Diabetes mellitus complication detail: without coma Qualified Code(s): E10.10 - Type 1 diabetes mellitus with ketoacidosis without coma - Plan #1 DKA: resolved. #2 DM I: Hgb A1c is 12.9, is still high but better than previous recorded. I have decreased the dose of Levemir insulin to 20 UNITS daily instead of BID, her blood sugar went to the lower side yesterday, continue SSI. #3 chronic diarrhea: C.Diff negative. Diarrhea has slowed down with loperamide. She will benefit from a GI evaluation, since has had this diarrhea going on for at least [address] Lema.
[2017-09-26] MEDS: LOPERAMIDE HCL 2 MG CAPSULE PO PRN (18:52)
[2017-09-26] MEDS: ATORVASTATIN 10 MG TAB PO SCH (21:09)
[2017-09-26] MEDS: MIRTAZAPINE 15 MG TAB PO SCH (21:09)
[2017-09-26] MEDS: SERTRALINE HCL 50 MG TAB PO SCH (21:09)
[2017-09-26] MEDS ORDERED: POTASSIUM 25 MEQ EFFERV TAB PO ONE (22:35)
[2017-09-27] MEDS: LOPERAMIDE HCL 2 MG CAPSULE PO PRN (01:21)
[2017-09-27 05:28] LABS: Absolute Lymphocytes (CBC) 2.3 K/uL (0.7-4.9); Absolute Monocytes 0.7 K/uL (0.1-1.3); Absolute Neutrophil 3.4 K/uL (1.8-8.0); Basophils % 0.6 % (0-1.3); Eosinophils % 1.6 % (0-4.4); Hematocrit 33.6 % (36.0-45.0); Lymphocytes % 34.7 % (15.3-44.8); MCH 28.3 pg (27.0-35.0); MCV 84.1 fL (80-100); MPV 9.1 fL (7.6-11.3); Monocytes % 10.6 % (3.3-12.3); RBC Red Blood Cell Count 3.99 M/uL (3.86-4.86)
[2017-09-27 05:35] LABS: BUN Blood Urea Nitrogen 5 mg/dL (6-20); Bicarbonate 27 mEq/L (21-31); Glucose Level 171 mg/dL (65-120); Potassium 3.8 mEq/L (3.6-5.0); Sodium Level 140 mEq/L (135-145)
[2017-09-27] MEDS: NA CHLORIDE 0.9% 1,000 ML IV SCH ×2 (06:05→11:21)
[2017-09-27] MEDS ORDERED: POTASSIUM 25 MEQ EFFERV TAB PO ONE (07:22)
[2017-09-27] MEDS ORDERED: INSULIN DETEMIR 100 UNIT/1 ML INSULIN SQ SCH ×2 (09:00)
[2017-09-27] MEDS: DIGOXIN 0.125 MG TABLET PO SCH (09:50)
[2017-09-27] MEDS: ENOXAPARIN 40 MG/0.4 ML SQ SCH (09:51)
[2017-09-27 12:22] VITALS: BP 110/64; TEMP 98.1
[2017-09-27 13:32] VITALS: O2SAT 98
--- NOTE | 2017-09-27 14:22 | P.DS ---
Admission Date: 09/24/17 Discharge Date: 09/27/17 Primary Care Provider: Dr. Valdes([place]); Endocrinology-Dr. Badillo. Disposition: ROUTINE DISCHARGE Discharge Condition: GOOD Reason for Admission: Diabetic ketoacidosis - Problems (1) Atrial fibrillation Current Visit: Yes Status: Chronic Qualifiers: Atrial fibrillation type: chronic Qualified Code(s): I48.2 - Chronic atrial fibrillation (2) Chronic diarrhea Current Visit: Yes Status: Chronic (3) DKA (diabetic ketoacidoses) Onset Date: 02/11/17 Current Visit: No Status: Acute Qualifiers: Diabetes mellitus type: type 1 Diabetes mellitus complication detail: without coma Qualified Code(s): E10.10 - Type 1 diabetes mellitus with ketoacidosis without coma (4) Diabetes mellitus type 1 Onset Date: 02/11/17 Current Visit: No Status: Chronic Qualifiers: Diabetes mellitus complication status: with ketoacidosis Diabetes mellitus complication detail: without coma Qualified Code(s): E10.10 - Type 1 diabetes mellitus with ketoacidosis without coma (5) Hyperlipidemia Onset Date: 02/11/17 Current Visit: No Status: Chronic Qualifiers: (6) Mental retardation Current Visit: Yes Status: Suspected (7) Severe malnutrition Onset Date: 09/25/17 Current Visit: Yes Status: Acute (8) Hypokalemia Onset Date: 02/11/17 Current Visit: No Status: Acute (9) Hypomagnesemia Onset Date: 02/11/17 Current Visit: No Status: Acute (10) Depression Current Visit: Yes Status: Chronic Qualifiers: Depression Type: unspecified Qualified Code(s): F32.9 - Major depressive disorder, single episode, unspecified Brief History of Present Illness: 22-year-old female presented emergency room with DKA. Patient recently evaluated with EGD and colonoscopy for chronic diarrhea. Patient with history of type 1 diabetes. Patient had electrolyte abnormalities. The patient was admitted for treatment. Hospital Course: Patient presented with DKA with noted electrolyte abnormalities. Patient with history of diabetes type 1 with poor compliance. Patient was given IV fluids and electrolyte replacement. Patient was started on IV insulin. Her DKA resolved. At discharge patient will continue with her regular regimen of Lantus 50 units subcu twice daily. Patient also using sliding scale. Recommendation is for the patient to follow up with Endocrinology in 1-2 weeks to follow up this hospitalization and continue her care. Recommendation is to maintain blood sugars less than 140 fasting and less than 200 after meals. Further adjustment can be done by endocrinology. Patient with history of atrial fibrillation. Patient will continue with digoxin. Patient not on chronic anti coagulation due to risk of bleeding. Recommendations for the patient to follow up with cardiology as an outpatient to further monitor and address. Patient with history of depression with anxiety. She will continue with her medication. Patient with hyperlipidemia. She will continue with her medication. Patient with possible mental retardation. She will need specific instructions to help with control of her diabetes. Vital Signs/Physical Exam: Temp Pulse Resp BP Pulse Ox 98.1 F 103 H 18 110/64 98 09/27/17 12:00 09/27/17 12:00 09/27/17 12:00 09/27/17 12:00 09/27/17 12:00 General: Alert, In no apparent distress, Oriented x3, Cooperative HEENT: Atraumatic Neck: Supple, No Thyromegaly Respiratory: Clear to auscultation bilaterally, Normal air movement Cardiovascular: Normal pulses, Regular rate/rhythm Gastrointestinal: Normal bowel sounds, Soft and benign, Non-distended, No tenderness, No masses, No rebound, No guarding Musculoskeletal: No erythema, No tenderness, No warmth Integumentary: No erythema, No warmth, No cyanosis Neurological: Normal speech, Normal strength at 5/5 x4 extr, Normal tone, Normal affect Laboratory Data at Discharge: WBC 6.5 K/uL (4.3-10.9) 09/27/17 04:37 Hgb 11.3 g/dL (12.0-15.0) L 09/27/17 04:37 Hct 33.6 % (36.0-45.0) L 09/27/17 04:37 Plt Count 261 K/uL (152-406) 09/27/17 04:37 PT 11.0 SECONDS (9.5-12.5) 09/24/17 17:35 INR 0.93 09/24/17 17:35 Sodium 140 mEq/L (135-145) 09/27/17 04:37 Potassium 3.8 mEq/L (3.6-5.0) 09/27/17 04:37 BUN 5 mg/dL (6-20) L 09/27/17 04:37 Creatinine 0.46 mg/dL (0.44-1.00) 09/27/17 04:37 Glucose 171 mg/dL (65-120) H 09/27/17 04:37 Phosphorus 5.3 mg/dL (2.5-4.3) H 09/25/17 07:17 Magnesium 2.3 mg/dL (1.8-2.5) D 09/25/17 07:17 Total Bilirubin 1.4 mg/dL (0.3-1.2) H 09/24/17 17:35 AST 97 IU/L (10-42) H 09/24/17 17:35 ALT 119 IU/L (10-60) H 09/24/17 17:35 Alkaline Phosphatase 169 IU/L (42-121) H 09/24/17 17:35 Lipase 27 U/L (22-51) 09/24/17 17:35 Home Medications: Simvastatin 20 mg PO DAILY 02/08/17 Digoxin [Lanoxin*] 0.125 mg PO DAILY 09/24/17 Insulin Glargine,Hum.rec.anlog [Lantus Solostar] 50 units SQ BID 09/24/17 Insulin Lispro [Humalog] 10 units SQ TIDWM 09/24/17 Mirtazapine 30 mg PO DAILY 09/24/17 Sertraline HCl 50 mg PO BEDTIME 09/24/17 Patient Discharge Instructions: 1. Patient will need a follow up with her PCP in 1 week to follow up this hospitalization. 2. Patient presented with DKA. Patient with history of diabetes type 1. This has resolved. At discharge patient will continue with her regular regimen of Lantus 50 units subcu twice daily. Patient also using sliding scale. Recommendation is for the patient to follow up with Endocrinology in 1-2 weeks to follow up this hospitalization and continue her care. Recommendation is to maintain blood sugars less than 140 fasting and less than 200 after meals. Further adjustment can be done by endocrinology. 3. Patient with history of atrial fibrillation. Patient will continue with digoxin. Patient not on chronic anti coagulation due to risk of bleeding. Recommendations for the patient follow up with cardiology as an outpatient to further monitor. 4. Patient has depression with anxiety. Patient will continue with her medication. 5. Patient has hyperlipidemia. Patient will continue with her medication. Diet: ADA Activity: Fall precautions Followup: Ashley Valdes [facility] [OUTSIDE PHYSICIAN] - Socorro Badillo MD [OUTSIDE PHYSICIAN] - Time spent managing pt's care (in minutes): 55
== END 2017-09-27 15:00 | disposition home or self-care (01) | DRG 637 ==
LOC: ER 17:00 → ERHOLD 19:38 → 4TH 09-25 10:13
PROVIDERS: ADMIT Hospitalist; ATTEND Family Medicine
DX: E10.10 Type 1 diabetes mellitus with ketoacidosis without coma (principal); E43 Unspecified severe protein-calorie malnutrition; Z68.1 Body mass index [BMI] 19.9 or less, adult; I48.2 Chronic atrial fibrillation; E87.6 Hypokalemia; E83.42 Hypomagnesemia; K52.9 Noninfective gastroenteritis and colitis, unspecified; F41.8 Other specified anxiety disorders; F79 Unspecified intellectual disabilities; Z79.4 Long term (current) use of insulin; Z79.899 Other long term (current) drug therapy
CPT/HCPCS: 36415; 71045; 80048; 80076; 81003; 81025; 82009; 82805; 82962; 83036; 83605; 83690; 83735; 84100; 84132; 84145; 84439; 84443; 84484; 85025; 85610; 87040; 87045; 87046; 87493; 93005; 99285; J0696; J1650; J2543; J3475; J7030